=== PATIENT | male | born 1945 | race Caucasian/White ===

== ENCOUNTER 2016-12-01 16:23 | Observation (INO) | payer MEDICARE, BC ==
[2016-12-01] MEDS ORDERED: Sodium Chloride 0.9% 10 ML Syringe FLUSH PRN (17:02)
[2016-12-01] MEDS ORDERED: Sodium Chloride 0.9% 1,000 ML IV ONE (17:02)
--- NOTE | 2016-12-01 17:23 | EDM.PDOC ---
ED HPI GENERAL MEDICAL PROBLEM - General Chief Complaint: Neurological Problem Stated Complaint: LIGHT HEADED, DIZINESS,LOW BP Time Seen by Provider: 12/01/16 17:02 Source of Information: Reports: Patient History Limitations: Reports: No Limitations - History of Present Illness INITIAL COMMENTS - FREE TEXT/NARRATIVE: The patient is a 71-year-old male with a chief complaint of lightheadedness and low blood pressure. The patient states that he is been on his antihypertensives for a long time with no change. Today he was watching TV and felt very lightheaded. He felt like he might pass out. He did not pass out. He took his blood pressure at home and found it to be low. It was as low as in the 60s systolic. He did not have any chest pain. He does feel mildly short of breath. No headache. He continues to feel a little bit lightheaded but states it's better than before. No recent illness. No fever. No vomiting or diarrhea. No dysuria. No cough or difficulty breathing. States he took his medications today as prescribed. Denies recent change in this. - Related Data Allergies Allergy/AdvReac Type Severity Reaction Status Date / Time atorvastatin calcium Allergy Muscle Verified 12/01/16 16:50 [From Lipitor] Aches metformin Allergy Cannot Verified 12/01/16 16:50 Remember venom-honey bee Allergy Anaphylactic Verified 12/01/16 16:50 [bee venom (honey bee)] Shock Home Meds: Home Meds Aspirin 325 mg PO DAILY 02/03/15 [History] Calcium Carbonate/Vitamin D3 [Calcium 600 + D Tablet] 1 each PO DAILY 02/03/15 [ History] EPINEPHrine [Epipen] 0.3 mg IM ASDIRECTED PRN 02/03/15 [History] Fish Oil/[place]-3 Fatty Acids [Fish Oil 1,000 MG] 1 cap PO BID 02/03/15 [History] Furosemide [Lasix] 40 mg PO DAILY 02/03/15 [History] Glucosamn/Condroitn/C/Mn/[place] [[facility] Glucosamine Chondroitin Tb] 1 each PO DAILY 02/03/15 [History] Isosorbide Mononitrate [Imdur] 60 mg PO DAILY 02/03/15 [History] Lisinopril 5 mg PO DAILY 02/03/15 [History] Metoprolol Tartrate [Lopressor] 50 mg PO BID 02/03/15 [History] Multivitamin with Minerals [Multiple Vitamin] 0.5 tab PO BEDTIME 02/03/15 [ History] Nitroglycerin [Nitrostat] 0.4 mg SL ASDIRECTED PRN 02/03/15 [History] Potassium Chloride 20 meq PO DAILY 02/03/15 [History] Simvastatin [Zocor] 40 mg PO BEDTIME 02/03/15 [History] Triamcinolone. 1 applic TOP BID PRN 02/03/15 [History] Ubidecarenone [Coenzyme Q10] 200 mg PO DAILY 02/03/15 [History] Vitamin B Complex [B Complex] 0.5 each PO BEDTIME 02/03/15 [History] glipiZIDE [Glucotrol] 10 mg PO DAILY 02/03/15 [History] Insulin Glargine,Hum.Rec.Anlog [Toujeo Solostar] 80 unit SQ BEDTIME 12/01/16 [ History] Liraglutide [Victoza] 1.8 mg SUBCUT BEDTIME 12/01/16 [History] Magnesium Oxide [Magnesium] 400 mg PO DAILY 12/01/16 [History] Niacin 500 mg PO BEDTIME 12/01/16 [History] Social & Family History - Tobacco Use Smoking Status *Q: Former Smoker Years of Tobacco use: 45 Month Tobacco Last Used: 6 years ago - Recreational Drug Use Recreational Drug Use: No ED ROS GENERAL - Review of Systems Review Of Systems: See Below Constitutional: Reports: Weakness. Denies: Fever HEENT: Reports: No Symptoms Respiratory: Denies: Shortness of Breath, Cough Cardiovascular: Denies: Chest Pain Endocrine: Reports: No Symptoms GI/Abdominal: Denies: Abdominal Pain : Reports: No Symptoms. Denies: Dysuria Musculoskeletal: Reports: No Symptoms Skin: Reports: No Symptoms Neurological: Reports: Dizziness. Denies: Syncope Psychiatric: Reports: No Symptoms ED EXAM, NEURO - Physical Exam Exam: See Below Exam Limited By: No Limitations General Appearance: Alert, WD/WN, No Apparent Distress Eye Exam: Bilateral Eye: Normal Inspection, PERRL Ears: Normal External Exam Nose: Normal Inspection Throat/Mouth: Normal Inspection, Normal Voice, No Airway Compromise Head Exam: Atraumatic, Normocephalic Neck: Normal Inspection, Supple, Non-Tender, Full Range of Motion Respiratory/Chest: No Respiratory Distress, Lungs Clear, Normal Breath Sounds, Chest Non-Tender Cardiovascular: Normal Peripheral Pulses, Regular Rate, Rhythm, No Edema, Systolic Murmur GI/Abdominal: Soft, Non-Tender. No: Rebound Neurological: Alert, Normal Mood/Affect, CN II-XII Intact, No Motor/Sensory Deficits, Oriented x 3 Extremities: Normal Inspection, No Pedal Edema Psychiatric: Normal Affect, Normal Mood Skin Exam: Warm, Dry, Intact, Normal Color, No Rash Course - Vital Signs Last Recorded V/S: Last Vital Signs Temp 37.3 C 12/01/16 16:50 Pulse 79 12/01/16 16:50 Resp 28 H 12/01/16 16:50 BP 99/47 L 12/01/16 16:50 Pulse Ox 94 L 12/01/16 16:50 - Orders/Labs/Meds Orders: Active Orders 24 hr Category Date Time Status EKG 12 Lead [EKG Documentation Completion] [RC] STAT Care 12/01/16 17:02 Active Peripheral IV Care [RC] . DIRECTED Care 12/01/16 17:02 Active Chest 1V Frontal [CR] Stat Exams 12/01/16 17:02 Taken Sodium Chloride 0.9% [Saline Flush] Med 12/01/16 17:02 Active 10 ml FLUSH ASDIRECTED PRN Peripheral IV Insertion Adult [OM.PC] Routine Oth 12/01/16 17:02 Ordered Medication Orders Sodium Chloride (Saline Flush) 10 ml FLUSH ASDIRECTED PRN PRN Reason: Keep Vein Open Last Admin: 12/01/16 17:15 Dose: 10 ml Labs: Laboratory Tests 12/01/16 12/01/16 12/01/16 Range/Units 16:44 16:53 16:53 WBC 7.35 (4.23-9.07) K/mm3 RBC 4.47 L (4.63-6.08) M/mm3 Hgb 13.8 (13.7-17.5) gm/L Hct 42.0 (40.1-51.0) % MCV 94.0 H (79.0-92.2) fl MCH 30.9 (25.7-32.2) pg MCHC 32.9 (32.2-35.5) g/dl RDW Std Deviation 46.3 H (35.1-43.9) fL Plt Count 215 (163-337) K/mm3 MPV 9.6 (9.4-12.3) fl Neut % (Auto) 66.8 (34.0-67.9) % Lymph % (Auto) 16.6 L (21.8-53.1) % Terry % (Auto) 11.6 (5.3-12.2) % Eos % (Auto) 3.5 (0.8-7.0) Baso % (Auto) 1.2 (0.1-1.2) % Neut # (Auto) 4.91 (1.78-5.38) K/mm3 Lymph # (Auto) 1.22 L (1.32-3.57) K/mm3 Terry # (Auto) 0.85 H (0.30-0.82) K/mm3 Eos # (Auto) 0.26 (0.04-0.54) K/mm3 Baso # (Auto) 0.09 H (0.01-0.08) K/mm3 Sodium 140 (136-145) mEq/L Potassium 4.1 (3.5-5.1) mEq/L Chloride 103 (98-107) mEq/L Carbon Dioxide 27 (21-32) mEq/L Anion Gap 14.1 (5-15) BUN 25 H (7-18) mg/dL Creatinine 1.6 H (0.7-1.3) mg/dL Est Cr Clr Drug Dosing 44.99 mL/min Estimated GFR (MDRD) 43 (>60) mL/min BUN/Creatinine Ratio 15.6 (14-18) Glucose 180 H (80-115) mg/dL POC Glucose 151 H (80-115) mg/dL Calcium 8.9 (8.5-10.1) mg/dL Total Bilirubin 0.4 (0.2-1.0) mg/dL AST 20 (15-37) U/L ALT 33 (16-63) U/L Alkaline Phosphatase 45 L (46-116) U/L Troponin I < 0.017 (0.00-0.056) ng/mL Total Protein 7.0 (6.4-8.2) g/dl Albumin 3.8 (3.4-5.0) g/dl Globulin 3.2 gm/dL Albumin/Globulin Ratio 1.2 (1-2) Meds: Medications Generic Name Dose Route Start Last Admin Trade Name Freq PRN Reason Stop Dose Admin Sodium Chloride 10 ml 12/01/16 17:02 12/01/16 17:15 Saline Flush FLUSH 10 ml ASDIRECTED PRN Administration Keep Vein Open Discontinued Medications Generic Name Dose Route Start Last Admin Trade Name Freq PRN Reason Stop Dose Admin Sodium Chloride 1,000 mls @ 1,000 mls/hr 12/01/16 17:02 12/01/16 17:14 Normal Saline IV 12/01/16 18:01 1,000 mls/hr ONETIME ONE Administration - Re-Assessments/Exams Free Text/Narrative Re-Assessment/Exam: 12/01/16 18:12 EKG shows incomplete right bundle branch block. No ST abnormality. No evidence of acute ischemia. MT interval mildly prolonged at 285. Chest x-ray shows normal mediastinum, mild cardiomegaly, slight opacity at the bases consistent with atelectasis versus less likely underlying infection. The patient is not complaining of a cough or fever. He was given a liter of normal saline and observed. His blood pressure has improved. He did have a run of bigeminy on the monitor which self resolved. 12/01/16 18:[address] Mar who agrees to admit. BP s/p 1L NS is 99/58. Departure - Departure Time of Disposition: 18:51 Disposition: Admitted As Inpatient 68 Clinical Impression: Pre-syncope Hypotension Qualifiers: Hypotension type: unspecified hypotension type Qualified Code(s): I95.9 - Hypotension, unspecified - Discharge Information Forms: ED Department Discharge - My Orders Last 24 Hours: My Active Orders 12/01/16 17:02 EKG 12 Lead [EKG Documentation Completion] [RC] STAT Peripheral IV Care [RC] . DIRECTED Chest 1V Frontal [CR] Stat Sodium Chloride 0.9% [Saline Flush] 10 ml FLUSH ASDIRECTED PRN Peripheral IV Insertion Adult [OM.PC] Routine - Assessment/Plan Last 24 Hours: My Active Orders 12/01/16 17:02 EKG 12 Lead [EKG Documentation Completion] [RC] STAT Peripheral IV Care [RC] . DIRECTED Chest 1V Frontal [CR] Stat Sodium Chloride 0.9% [Saline Flush] 10 ml FLUSH ASDIRECTED PRN Peripheral IV Insertion Adult [OM.PC] Routine
[2016-12-01] MEDS ORDERED: Metoprolol Tartrate 5 MG/5 ML SDV IVPUSH PRN (19:54)
[2016-12-01] MEDS ORDERED: hydrALAZINE 20 MG/ML SDV IVPUSH PRN (19:54)
[2016-12-01] MEDS ORDERED: Bisacodyl 5 MG Tab PO PRN (19:55)
[2016-12-01] MEDS ORDERED: Ondansetron 4 MG/2 ML SDV IV PRN (19:55)
[2016-12-01] MEDS ORDERED: LORazepam 2 MG/ML MDV IV PRN (19:55)
[2016-12-01] MEDS ORDERED: Temazepam 15 MG Cap PO PRN (19:55)
[2016-12-01] MEDS ORDERED: Promethazine 12.5 MG in Sodium Chloride 0.9% 50 ML IV PRN (19:55)
[2016-12-01] MEDS ORDERED: Docusate Sodium 100 MG Cap PO PRN (19:55)
[2016-12-01] MEDS ORDERED: Albuterol/Ipratropium 3.0-0.5 MG/3 ML Neb Soln NEB PRN (19:55)
[2016-12-01] MEDS ORDERED: Acetaminophen/HYDROcodone 325-5 MG Tab PO PRN (19:55)
[2016-12-01] MEDS ORDERED: Polyethylene Glycol 3350 Powder 17 GM Packet PO PRN (19:55)
[2016-12-01] MEDS ORDERED: Acetaminophen 325 MG Tab PO PRN (19:55)
[2016-12-01] MEDS ORDERED: HYDROmorphone 1 MG/ML Syringe IVPUSH PRN (19:55)
[2016-12-01] MEDS ORDERED: [UNRECOGNIZED DRUG - MIXTURE] TOP PRN (19:58)
[2016-12-01] MEDS ORDERED: Nitroglycerin 0.4 MG Tab.SL SL PRN (19:58)
[2016-12-01] MEDS ORDERED: EPINEPHrine 0.3 MG/0.3 ML Pen Autoinjector IM PRN (19:58)
[2016-12-01] MEDS ORDERED: 50% Dextrose in Water 50 ML Syringe IVPUSH PRN (20:00)
--- NOTE | 2016-12-01 20:16 | PCM.HP ---
H&P History of Present Illness - General Date of Service: 12/01/16 Admit Problem/Dx: Hypotension and Pre-Syncope Source of Information: Patient, Provider, RN Notes Reviewed History Limitations: Reports: No Limitations - History of Present Illness Initial Comments - Free Text/Narative: This is a 71-year-old elderly white male with past medical history of hypertension, hyperlipidemia, coronary artery disease, type 2 diabetes, obstructive sleep apnea, DJD, and obesity with BMI of 44.5 who presented to the emergency department with complains of low blood pressure and a one time pre- syncopal episode. The incident happened today while he was at home, watching TV and got lightheaded. Patient felt like he might pass out. Patient took his blood pressure and he a got a reading of systolic pressure in the 60s. He denies any other symptoms except for mild shortness of breath. At that time, his finger stick blood sugar was noted at 151. Patient carries a history of hypertension on the following medications: lisinopril 5 mg by mouth daily, metoprolol tartrate 5 mg by mouth twice a day, Lasix 40 mg by mouth daily and Imdur 60 mg by mouth daily. Patient denies any changes on his home maintenance medication. He denies doing anything unusual or out of the ordinary. His initial workup in the emergency department shows an unremarkable CBC. His chemistry is remarkable for BUN of 25, creatinine of 1.6, glucose of 180, and alkaline phosphatase of 45. His chest x-ray shows no acute abnormal findings. Patient is being admitted for further medical management of profound hypotension. He received initial treatment with 1L normal saline in the emergency department before he was transferred to the floor for further management. His most recent documented BP was noted at 99/58 mmHg. His code status is full. - Related Data Allergies/Adverse Reactions: Allergies Allergy/AdvReac Type Severity Reaction Status Date / Time metformin Allergy Cannot Verified 12/01/16 19:56 Remember venom-honey bee Allergy Anaphylactic Verified 12/01/16 19:56 [bee venom (honey bee)] Shock atorvastatin calcium AdvReac Muscle Verified 12/02/16 07:11 [From Lipitor] Aches Home Medications: Home Meds Aspirin 325 mg PO DAILY 02/03/15 [History] Calcium Carbonate/Vitamin D3 [Calcium 600 + D Tablet] 1 each PO DAILY 02/03/15 [ History] EPINEPHrine [Epipen] 0.3 mg IM ASDIRECTED PRN 02/03/15 [History] Fish Oil/[place]-3 Fatty Acids [Fish Oil 1,000 MG] 1 cap PO BID 02/03/15 [History] Furosemide [Lasix] 40 mg PO DAILY 02/03/15 [History] Glucosamn/[place]/C/Mn/[place] [[facility] Glucosamine Chondroitin Tb] 1 each PO DAILY 02/03/15 [History] Isosorbide Mononitrate [Imdur] 60 mg PO DAILY 02/03/15 [History] Lisinopril 5 mg PO DAILY 02/03/15 [History] Metoprolol Tartrate [Lopressor] 50 mg PO BID 02/03/15 [History] Multivitamin with Minerals [Multiple Vitamin] 0.5 tab PO BEDTIME 02/03/15 [ History] Nitroglycerin [Nitrostat] 0.4 mg SL ASDIRECTED PRN 02/03/15 [History] Potassium Chloride 20 meq PO DAILY 02/03/15 [History] Simvastatin [Zocor] 40 mg PO BEDTIME 02/03/15 [History] Triamcinolone. 1 applic TOP BID PRN 02/03/15 [History] Ubidecarenone [Coenzyme Q10] 200 mg PO DAILY 02/03/15 [History] Vitamin B Complex [B Complex] 0.5 each PO BEDTIME 02/03/15 [History] glipiZIDE [Glucotrol] 10 mg PO DAILY 02/03/15 [History] Insulin Glargine,Hum.Rec.Anlog [Toujeo Solostar] 80 unit SQ BEDTIME 12/01/16 [ History] Liraglutide [Victoza] 1.8 mg SUBCUT BEDTIME 12/01/16 [History] Magnesium Oxide [Magnesium] 400 mg PO DAILY 12/01/16 [History] Niacin 500 mg PO BEDTIME 12/01/16 [History] Past Medical History HEENT History: Reports: Other (See Below) Other HEENT History: wears glasses Cardiovascular History: Reports: High Cholesterol, Hypertension, [place] Musculoskeletal History: Reports: Arthritis Endocrine/Metabolic History: Reports: Diabetes, Type II - Past Surgical History Cardiovascular Surgical History: Reports: Coronary Artery Bypass GI Surgical History: Reports: Hernia Repair/Other Social & Family History - Tobacco Use Smoking Status *Q: Former Smoker Years of Tobacco use: 45 Month Tobacco Last Used: 6 years ago - Caffeine Use Caffeine Use: Reports: None - Recreational Drug Use Recreational Drug Use: No H&P Review of Systems - Review of Systems: Review Of Systems: ROS reveals no pertinent complaints other than HPI. Exam - Exam Exam: See Below - Vital Signs Vital Signs: Last Vital Signs Temp 37.3 C 12/01/16 16:50 Pulse 79 12/01/16 16:50 Resp 28 H 12/01/16 16:50 BP 99/47 L 12/01/16 16:50 Pulse Ox 94 L 12/01/16 16:50 Weight: 140.614 kg - Exam General: Alert, Oriented, Cooperative, Mild Distress, Other (Obese) HEENT: Conjunctiva Clear, EACs Clear, EOMI, Hearing Intact, Mucosa Moist & [place] , Nares Patent, Normal Nasal Septum, Pupils Equal, Abnormal Pupils Neck: Supple, Trachea Midline, Full Range of Motion, Other (short and thick) Lungs: Clear to Auscultation, Normal Respiratory Effort Cardiovascular: Regular Rate, Regular Rhythm Abdomen: Normal Bowel Sounds, Other (Obese). No: Tenderness (Male) Exam: Deferred Rectal (Males) Exam: Deferred Back Exam: Normal Inspection, Decreased Range of Motion Extremities: Normal Inspection, Normal Pulses Peripheral Pulses: 2+: Posterior Tibial (L), Posterior Tibial (R), Dorsalis Pedis (L), Dorsalis Pedis (R) Skin: Warm, Dry, Intact, Rash (all over his body primarily on hi back) Neuro Extensive - Mental Status: Oriented x3, Normal Cognition, Memory Intact Neuro Extensive - Motor, Sensory, Reflexes: CN II-XII Intact, Normal Gait Psychiatric: Alert, Normal Affect, Normal Mood - Patient Data Result Diagrams: 12/02/16 05:23 12/02/16 05:23 EKG INTERPRETATION EKG Date: 12/01/16 Rhythm: Other (SR) ST-T: Normal MA/PQ Interval: slightly prolonged EKG Interpretation Comments: Incomplete RB3 *Q Meaningful Use (ADM) - VTE *Q VTE Criteria *Q: - Stroke *Q Stroke Criteria *Q: - AMI *Q AMI Criteria *Q: Problem List Initiated/Reviewed/Updated: Yes Orders Last 24hrs: Active Orders 24 hr Category Date Time Status Antiembolic Devices [RC] PER UNIT ROUTINE Care 12/01/16 19:56 Ordered Blood Glucose Check, Bedside [RC] QIDACANDBED Care 12/01/16 20:00 Ordered Cardiac Monitoring [RC] CONTINUOUS Care 12/01/16 19:55 Ordered Height and Weight [RC] DAILY Care 12/01/16 19:55 Ordered Intake and Output [RC] QSHIFT Care 12/01/16 19:55 Ordered Oxygen Therapy [RC] PRN Care 12/01/16 19:55 Ordered RT Aerosol Therapy [RC] ASDIRECTED Care 12/01/16 19:56 Ordered Up With Assistance [RC] ASDIRECTED Care 12/01/16 19:55 Ordered Up ad Naomi [RC] ASDIRECTED Care 12/01/16 19:55 Ordered VTE/DVT Education [RC] PER UNIT ROUTINE Care 12/01/16 19:55 Ordered Vital Signs [RC] Q4H Care 12/01/16 19:55 Ordered Consult to Case Management [CONS] Routine Cons 12/01/16 19:57 Ordered Consult to Master Glazier [CONS] Routine Cons 12/01/16 19:57 Ordered OT Evaluation and Treatment [CONS] Routine Cons 12/01/16 19:57 Ordered PT Evaluation and Treatment [CONS] Routine Cons 12/01/16 19:57 Ordered ADA Diabetic [[place] [employer] Diet] [DIET Diet 12/01/16 Breakfast Ordered ] Echo Comp wo Cont [US] Urgent Exams 12/01/16 20:00 Ordered A1C [GLYCOSYLATED HEMOGLOBIN,HGBA1C] [CHEM] AM Lab 12/02/16 05:11 Ordered BASIC METABOLIC PANEL,BMP [CHEM] AM Lab 12/02/16 05:11 Ordered BASIC METABOLIC PANEL,BMP [CHEM] AM Lab 12/03/16 05:11 Ordered BASIC METABOLIC PANEL,BMP [CHEM] AM Lab 12/04/16 05:11 Ordered BASIC METABOLIC PANEL,BMP [CHEM] AM Lab 12/05/16 05:11 Ordered BASIC METABOLIC PANEL,BMP [CHEM] AM Lab 12/06/16 05:11 Ordered CBC WITH AUTO DIFF [HEME] AM Lab 12/02/16 05:11 Ordered CBC WITH AUTO DIFF [HEME] AM Lab 12/03/16 05:11 Ordered CBC WITH AUTO DIFF [HEME] AM Lab 12/04/16 05:11 Ordered CBC WITH AUTO DIFF [HEME] AM Lab 12/05/16 05:11 Ordered CBC WITH AUTO DIFF [HEME] AM Lab 12/06/16 05:11 Ordered MAGNESIUM [CHEM] AM Lab 12/02/16 05:11 Ordered MAGNESIUM [CHEM] AM Lab 12/03/16 05:11 Ordered MAGNESIUM [CHEM] AM Lab 12/04/16 05:11 Ordered MAGNESIUM [CHEM] AM Lab 12/05/16 05:11 Ordered MAGNESIUM [CHEM] AM Lab 12/06/16 05:11 Ordered Acetaminophen [Tylenol] Med 12/01/16 19:55 Ordered 650 mg PO Q4H PRN Acetaminophen/HYDROcodone [[place] 325-5 MG] Med 12/01/16 19:55 Ordered 1 tab PO Q4H PRN Albuterol/Ipratropium [DuoNeb 3.0-0.5 MG/3 ML] Med 12/01/16 19:55 Ordered 3 ml NEB Q4H PRN Aspirin Med 12/02/16 09:00 Ordered 325 mg PO DAILY Bisacodyl [Dulcolax] Med 12/01/16 19:55 Ordered 5 mg PO DAILY PRN Calcium Carbonate/Vitamin D3 [Calcium 600 + D Tablet] Med 12/02/16 09:00 Ordered 1 each PO DAILY Dextrose 50% in Water Med 12/01/16 20:00 Ordered 50 ml IVPUSH ASDIRECTED PRN Docusate Sodium [Colace] Med 12/01/16 19:55 Ordered 100 mg PO BID PRN Docusate Sodium/Sennosides [Senna Plus] Med 12/01/16 19:55 Ordered 1 tab PO BID PRN EPINEPHrine [Epipen] Med 12/01/16 19:58 Ordered 0.3 mg IM ASDIRECTED PRN Fish Oil/[place]-3 Fatty Acids [Fish Oil] Med 12/01/16 21:00 Ordered 1 cap PO BID Glucosamn/Condroitn/C/Mn/[place] [[facility] Glucosamine Med 12/02/16 09:00 Ordered Chondroitin Tb] 1 each PO DAILY HYDROmorphone [Dilaudid] Med 12/01/16 19:55 Ordered 0.25 mg IVPUSH Q2H PRN Insulin Aspart [NovoLOG] Med 12/01/16 22:00 Ordered See Protocol SUBCUT QIDACANDBED Insulin Glargine,Hum.Rec.Anlog [[place]] Med 12/01/16 21:00 Ordered 80 unit SQ BEDTIME LORazepam [Ativan] Med 12/01/16 19:55 Ordered 0.5 mg IV Q6H PRN Liraglutide Med 12/01/16 21:00 Ordered 1.8 mg SUBCUT BEDTIME Magnesium Oxide [Magnesium] Med 12/02/16 09:00 Ordered 400 mg PO DAILY Magnesium Rep Pharmacy to Dose [Pharmacy to Dose - Med 12/01/16 20:00 Ordered Magnesium Replacement] 1 dose .XX ASDIRECTED Metoprolol Tartrate [Lopressor] Med 12/01/16 19:54 Ordered 5 mg IVPUSH Q4H PRN Multivitamin with Minerals [Multiple Vitamin] Med 12/01/16 21:00 Ordered 0.5 tab PO BEDTIME Niacin [Niacin] Med 12/01/16 21:00 Ordered 500 mg PO BEDTIME Nitroglycerin [Nitrostat] Med 12/01/16 19:58 Ordered 0.4 mg SL ASDIRECTED PRN Ondansetron [Zofran] Med 12/01/16 19:55 Ordered 4 mg IV Q6H PRN Polyethylene Glycol 3350 [MiraLAX] Med 12/01/16 19:55 Ordered 17 gm PO DAILY PRN Potassium Rep Pharmacy to Dose [Pharmacy to Dose - Med 12/01/16 20:00 Ordered Potassium Replacement] 1 dose .XX ASDIRECTED Promethazine [Phenergan] 12.5 mg Med 12/01/16 19:55 Ordered Sodium Chloride 0.9% [Normal Saline] 50 ml IV Q6H Simvastatin [Zocor] Med 12/01/16 21:00 Ordered 40 mg PO BEDTIME Temazepam [Restoril] Med 12/01/16 19:55 Ordered 15 mg PO BEDTIME PRN Triamcinolone. Med 12/01/16 19:58 Ordered 1 applic TOP BID PRN Ubidecarenone Med 12/02/16 09:00 Ordered 200 mg PO DAILY Vitamin B Complex Med 12/01/16 21:00 Ordered 0.5 each PO BEDTIME glipiZIDE [Glucotrol] Med 12/02/16 09:00 Ordered 10 mg PO DAILY hydrALAZINE [Apresoline] Med 12/01/16 19:54 Ordered 20 mg IVPUSH Q4H PRN Sequential Compression Device [OM.PC] Per Unit Routine Oth 12/01/16 19:55 Ordered Resuscitation Status Routine Resus Stat 12/01/16 19:55 Ordered Medication Orders Acetaminophen (Tylenol) 650 mg PO Q4H PRN PRN Reason: Pain (Mild 1-3)/fever Hydrocodone Bitart/Acetaminophen ([place] 325-5 Mg) 1 tab PO Q4H PRN PRN Reason: Pain (moderate 4-6) Albuterol/Ipratropium (Duoneb 3.0-0.5 Mg/3 Ml) 3 ml NEB Q4H PRN PRN Reason: Shortness Of Breath/wheezing Bisacodyl (Dulcolax) 5 mg PO DAILY PRN PRN Reason: Constipation Dextrose/Water (Dextrose 50% In Water) 50 ml IVPUSH ASDIRECTED PRN PRN Reason: Hypoglycemia Docusate Sodium (Colace) 100 mg PO BID PRN PRN Reason: Constipation Epinephrine HCl (Epipen) 0.3 mg IM ASDIRECTED PRN PRN Reason: beesting Fish Oil (Fish Oil) gm PO BID [facility] Glipizide (Glucotrol) 10 mg PO DAILY [facility] Hydralazine HCl (Apresoline) 20 mg IVPUSH Q4H PRN PRN Reason: Hypertension Hydromorphone HCl (Dilaudid) 0.25 mg IVPUSH Q2H PRN PRN Reason: Pain (severe 7-10) Promethazine HCl 12.5 mg/ (Sodium Chloride) 50.5 mls @ 100 mls/hr IV Q6H PRN PRN Reason: Nausea/Vomiting Insulin Aspart (Novolog) 0 unit SUBCUT QIDACANDBED JUAN PRN Reason: Protocol Lorazepam (Ativan) 0.5 mg IV Q6H PRN PRN Reason: Anxiety Magnesium Sulfate (Pharmacy To Dose - Magnesium Replacement) 1 dose .XX ASDIRECTED [facility] Metoprolol Tartrate (Lopressor) 5 mg IVPUSH Q4H PRN PRN Reason: Tachycardia Nitroglycerin (Nitrostat) 0.4 mg SL ASDIRECTED PRN PRN Reason: Chest Pain Non-Formulary Medication (Aspirin) 325 mg PO DAILY [facility] Non-Formulary Medication (Calcium Carbonate/Vitamin D3 [Calcium 600 + D Tablet] ) 1 each PO DAILY [facility] Non-Formulary Medication (Glucosamn/Condroitn/C/Mn/[place] [[facility] Glucosamine Chondroitin Tb]) 1 each PO DAILY [facility] Non-Formulary Medication (Insulin Glargine,Hum.Rec.Anlog [[place] Solostar]) 80 unit SQ BEDTIME [facility] Non-Formulary Medication (Liraglutide) 1.8 mg SUBCUT BEDTIME [facility] Non-Formulary Medication (Magnesium Oxide [Magnesium]) 400 mg PO DAILY [facility] Non-Formulary Medication (Multivitamin With Minerals [Multiple Vitamin]) 0.5 tab PO BEDTIME [facility] Non-Formulary Medication (Niacin [Niacin]) 500 mg PO BEDTIME [facility] Non-Formulary Medication (Triamcinolone.) 1 applic TOP BID PRN PRN Reason: Rash Non-Formulary Medication (Ubidecarenone) 200 mg PO DAILY [facility] Non-Formulary Medication (Vitamin B Complex) 0.5 each PO BEDTIME [facility] Ondansetron HCl (Zofran) 4 mg IV Q6H PRN PRN Reason: Nausea/Vomiting Polyethylene Glycol (Miralax) 17 gm PO DAILY PRN PRN Reason: Constipation Potassium Chloride (Pharmacy To Dose - Potassium Replacement) 1 dose .XX ASDIRECTED [facility] Senna/Docusate Sodium (Senna Plus) 1 tab PO BID PRN PRN Reason: Constipation Simvastatin (Zocor) 40 mg PO BEDTIME [facility] Sodium Chloride (Saline Flush) 10 ml FLUSH ASDIRECTED PRN PRN Reason: Keep Vein Open Last Admin: 12/01/16 17:15 Dose: 10 ml Temazepam (Restoril) 15 mg PO BEDTIME PRN PRN Reason: Sleep Assessment/Plan Comment:: Assessment/Plan: Acute: Pre-Syncope - One time episode - Likely 2/2 Hypotension - Will monitor - 2D echo in AM to r/o valvular dysfunction - Ad naomi with Assistance - Telemetry for abnormal rhythm Profound Hypotension - Risk factors: Multiple BP Meds - Hold for now - Already received 1L NS in ED - Continue maintenance fluid - Vitals check per unit protocol Chronic: DM2 HLD CAD LISA on CPAP Psoriasis Obesity with BMI 44.5 DJD Plan: Admit to the floor w/ Tele Routine AM Labs CPAP at night Dietary consult for weight management 2D Echo in am PT/OT consult SW/CM for d/c planning Additional orders as above Code status: 1
[2016-12-01] MEDS ORDERED: VITAMIN B COMPLEX PO SCH (21:00)
[2016-12-01] MEDS ORDERED: Multivitamins with Minerals/Folic Acid/Lutein/Zeaxanth Tab PO SCH (21:00)
[2016-12-01] MEDS ORDERED: VICTOZA SUBCUT SCH (21:00)
[2016-12-01] MEDS ORDERED: Niacin 500 MG Tab.ER PO SCH (21:00)
[2016-12-01] MEDS ORDERED: Simvastatin 40 MG Tab PO SCH (21:00)
[2016-12-01] MEDS: Fish Oil/Omega-3 Fatty Acids 1 Gm Cap PO SCH (21:33)
[2016-12-01] MEDS: Insulin Detemir 100 Units/ML 3 ML Pen SUBCUT SCH (21:34)
[2016-12-01] MEDS: Insulin Aspart 100 Units/ML 3 ML Pen SUBCUT SCH (21:36)
[2016-12-02] MEDS: Insulin Aspart 100 Units/ML 3 ML Pen SUBCUT SCH ×2 (06:58→11:05)
[2016-12-02] MEDS ORDERED: HYDROmorphone 0.5 MG/0.5 ML Syringe IVPUSH PRN (07:08)
--- NOTE | 2016-12-02 07:11 | CR ---
Chest: Portable view of the chest was obtained. Comparison: Previous chest x-ray of 08/25/13. Heart size and mediastinum are within normal limits for portable technique. Lungs are clear with no acute infiltrates. Previous sternotomy is noted. Bony structures are grossly intact. Impression: 1. Nothing acute is identified on portable chest x-ray. Diagnostic code #1
[2016-12-02] MEDS ORDERED: Magnesium Oxide 400 MG Tab PO SCH (09:00)
[2016-12-02] MEDS ORDERED: [UNRECOGNIZED DRUG - OTHER] PO SCH (09:00)
[2016-12-02] MEDS ORDERED: CO Q10 PO SCH (09:00)
[2016-12-02] MEDS ORDERED: Calcium Carbonate/Vitamin D3 1500 MG-200 Units Tab PO SCH (09:00)
[2016-12-02] MEDS ORDERED: Aspirin 325 MG Tab.EC PO SCH (09:00)
[2016-12-02] MEDS: Fish Oil/Omega-3 Fatty Acids 1 Gm Cap PO SCH (09:51)
[2016-12-02] MEDS: Insulin Detemir 100 Units/ML 3 ML Pen SUBCUT SCH (09:54)
--- NOTE | 2016-12-02 11:09 | PCM.DCSUM1 ---
Discharge Summary - Hospital Course Brief History: This is a 71-year-old elderly white male with past medical history of hypertension, hyperlipidemia, coronary artery disease, type 2 diabetes, obstructive sleep apnea, DJD, and obesity with BMI of 44.5 who presented to the emergency department with complains of low blood pressure and a one time pre-syncopal episode. He was admitted overnight for observation. - Discharge Data Discharge Date: 12/02/16 Discharge Disposition: Home, Self-Care 01 Condition: Good - Patient Summary/Data Operative Procedure(s) Performed: None Complications: None Consults: Consultations 12/01/16 19:57 Consult to Case Management [CONS] Routine Consult to Burlap Worker [CONS] Routine OT Evaluation and Treatment [CONS] Routine PT Evaluation and Treatment [CONS] Routine 12/01/16 20:23 Consult to Dietary [Consult to Lacquer Polisher] [CONS] Routine Hospital Course: Patient was primarily admitted for symptomatic hypotension which we felt induced by multiple blood pressure medications. He also had a one time presyncopal episode at the same time but did not have recurrent episode while here in the hospital. Patient received initial treatment in ED. By the time he got to the floor, he was pretty much back to his normal baseline. While in ED, he received volume resuscitative measures and all his blood pressure meds were held overnight. His most recent blood pressure on the day of discharge was noted at 135/65 mmHg. No abnormal telemetry was ever recorded during his short stay except for occasional PVCs, which appears to be normal to him. A 2-D echo was ordered to asses his valvular function, unfortunately the report is still pending. Patient is very eager to leave and therefore we will plan on forwarding the result to his primary care as soon as we receive it from Tim. His hospital course was uncomplicated. The rest of his chronic medical illness remained stable during this admission. Patient will be leaving today. He was advised to check his blood pressure before taking all his medications (blood pressure parameters provided). He is to check and log his vitals at least twice a day and 3-4 times a week. He is to show the results to his primary care doctor on his follow-up appointment in about 1-2 weeks. Lastly, patient was further advised to continue with lifestyle modifications: regular exercise, eat proper diet and weight loss. He is to come back or seek immediate care should his symptoms persist or get worse. The patient expressed understanding and in agreement with the plans as discussed above. All questions were answered. Dr. Huston, primary care provider, was contacted and updated about the discharge care plans on the day of patient's discharge. - Patient Instructions Diet: Heart Healthy Diet, Usual Diet as Tolerated, Diabetic Diet, Weight Loss Diet Activity: As Tolerated Driving: May Drive Today Showering/Bathing: May Shower Notify Provider of: Increased Pain, Swelling and Redness, Nausea and/or Vomiting Other/Special Instructions: - Please resume all home maintenance medications as directed. - Check your BP before taking all your blood pressure medications. - Check yout vitals at least 2 times a day and 3-4 times a wee. Log and show it to your PCP on your follow up appointment. - Follow up with your family doctor as scheduled - Discharge Plan Home Medications: Home Meds Aspirin 325 mg PO DAILY 02/03/15 [History] Calcium Carbonate/Vitamin D3 [Calcium 600 + D Tablet] 1 each PO DAILY 02/03/15 [ History] EPINEPHrine [Epipen 2-Ankit] 0.3 mg IM ASDIRECTED PRN 02/03/15 [History] Fish Oil/[place]-3 Fatty Acids [Fish Oil 1,000 MG] 1 cap PO BID 02/03/15 [History] Furosemide [Lasix] 40 mg PO DAILY 02/03/15 [History] Glucosamn/Condroitn/C/Mn/[place] [[facility]vs Glucosamine Chondroitin Tb] 1 each PO DAILY 02/03/15 [History] Isosorbide Mononitrate [Imdur] 60 mg PO DAILY 02/03/15 [History] Lisinopril 5 mg PO DAILY 02/03/15 [History] Metoprolol Tartrate [Lopressor] 50 mg PO BID 02/03/15 [History] Multivitamin with Minerals [Multiple Vitamin] 0.5 tab PO BEDTIME 02/03/15 [ History] Nitroglycerin [Nitrostat] 0.4 mg SL ASDIRECTED PRN 02/03/15 [History] Potassium Chloride 20 meq PO DAILY 02/03/15 [History] Simvastatin [Zocor] 40 mg PO BEDTIME 02/03/15 [History] Triamcinolone. 1 applic TOP BID PRN 02/03/15 [History] Ubidecarenone [Coenzyme Q10] 200 mg PO DAILY 02/03/15 [History] Vitamin B Complex [B Complex] 0.5 each PO BEDTIME 02/03/15 [History] glipiZIDE [Glucotrol] 10 mg PO DAILY 02/03/15 [History] Insulin Glargine,Hum.Rec.Anlog [Toutravo Solostar] 80 unit SQ BEDTIME 12/01/16 [ History] Liraglutide [Victoza] 1.8 mg SUBCUT BEDTIME 12/01/16 [History] Magnesium Oxide [Magnesium] 400 mg PO DAILY 12/01/16 [History] Niacin 500 mg PO BEDTIME 12/01/16 [History] Patient Handouts: Hypotension, [id number] Referrals: Tucker Dsouza MD [Primary Care Provider] - ([place] [facility] will call you with a time for a follow-up appointment in the next 1-2 weeks.) - Discharge Summary/Plan Comment DC Time >30 min.: Yes (45 mins) Discharge Summary/Plan Comment: Discharge to Home - General Info Date of Service: 12/02/16 Admission Dx/Problem (Free Text: Hypotension and Pre-Syncope Subjective Update: Follow up Functional Status: Reports: pain controlled, tolerating diet, ambulating, urinating. Denies: new symptoms - Review of Systems General: Denies: Fever, Weakness, Fatigue, Malaise, Chills HEENT: Reports: no symptoms Pulmonary: Denies: shortness of breath Cardiovascular: Denies: Chest Pain, Palpitations, Dyspnea on Exertion, Orthopnea , Edema, Lightheadedness Gastrointestinal: Denies: Abdominal pain, Nausea, Vomiting Genitourinary: Reports: no symptoms Musculoskeletal: Reports: no symptoms Skin: Reports: rash (baseline psoriasis) Neurological: Denies: Confusion, Difficulty Walking, Weakness, Gait Disturbance Psychiatric: Denies: depression, anxiety, agitation, hallucinations Systems Review Comment: No overnight or acute issues. His vitals have been stable. No new complaints. - Patient Data Vitals - Most Recent: Last Vital Signs Temp 36.2 C 12/02/16 07:50 Pulse 76 12/02/16 09:56 Resp 18 12/02/16 07:50 BP 118/57 L 12/02/16 09:56 Pulse Ox 96 12/02/16 09:56 Weight - Most Recent: 140.614 kg I&O - Last 24 hours: Intake & Output 12/01/16 12/02/16 12/02/16 22:59 06:59 14:59 Intake Total 600 180 Output Total 800 Balance -200 180 Lab Results - Last 24 hrs: Laboratory Results - last 24 hr 12/01/16 12/02/16 12/02/16 Range/Units 21:02 05:23 05:23 WBC 6.46 (4.23-9.07) K/mm3 RBC 4.79 (4.63-6.08) M/mm3 Hgb 14.5 (13.7-17.5) gm/L Hct 45.2 (40.1-51.0) % MCV 94.4 H (79.0-92.2) fl MCH 30.3 (25.7-32.2) pg MCHC 32.1 L (32.2-35.5) g/dl RDW Std Deviation 46.9 H (35.1-43.9) fL Plt Count 202 (163-337) K/mm3 MPV 9.9 (9.4-12.3) fl Neut % (Auto) 59.9 (34.0-67.9) % Lymph % (Auto) 21.7 L (21.8-53.1) % Levy % (Auto) 13.6 H (5.3-12.2) % Eos % (Auto) 3.4 (0.8-7.0) Baso % (Auto) 1.2 (0.1-1.2) % Neut # (Auto) 3.87 (1.78-5.38) K/mm3 Lymph # (Auto) 1.40 (1.32-3.57) K/mm3 Levy # (Auto) 0.88 H (0.30-0.82) K/mm3 Eos # (Auto) 0.22 (0.04-0.54) K/mm3 Baso # (Auto) 0.08 (0.01-0.08) K/mm3 Sodium 142 (136-145) mEq/L Potassium 4.1 (3.5-5.1) mEq/L Chloride 108 H (98-107) mEq/L Carbon Dioxide 26 (21-32) mEq/L Anion Gap 12.1 (5-15) BUN 19 H (7-18) mg/dL Creatinine 1.4 H (0.7-1.3) mg/dL Est Cr Clr Drug Dosing 51.42 mL/min Estimated GFR (MDRD) 50 (>60) mL/min BUN/Creatinine Ratio 13.6 L (14-18) Glucose 109 (80-115) mg/dL POC Glucose 180 H (80-115) mg/dL Hemoglobin A1c (4.50-6.20) % Calcium 8.4 L (8.5-10.1) mg/dL Magnesium 2.2 (1.8-2.4) mg/dl 12/02/16 12/02/16 Range/Units 05:23 06:45 WBC (4.23-9.07) K/mm3 RBC (4.63-6.08) M/mm3 Hgb (13.7-17.5) gm/L Hct (40.1-51.0) % MCV (79.0-92.2) fl MCH (25.7-32.2) pg MCHC (32.2-35.5) g/dl RDW Std Deviation (35.1-43.9) fL Plt Count (163-337) K/mm3 MPV (9.4-12.3) fl Neut % (Auto) (34.0-67.9) % Lymph % (Auto) (21.8-53.1) % Levy % (Auto) (5.3-12.2) % Eos % (Auto) (0.8-7.0) Baso % (Auto) (0.1-1.2) % Neut # (Auto) (1.78-5.38) K/mm3 Lymph # (Auto) (1.32-3.57) K/mm3 Levy # (Auto) (0.30-0.82) K/mm3 Eos # (Auto) (0.04-0.54) K/mm3 Baso # (Auto) (0.01-0.08) K/mm3 Sodium (136-145) mEq/L Potassium (3.5-5.1) mEq/L Chloride (98-107) mEq/L Carbon Dioxide (21-32) mEq/L Anion Gap (5-15) BUN (7-18) mg/dL Creatinine (0.7-1.3) mg/dL Est Cr Clr Drug Dosing mL/min Estimated GFR (MDRD) (>60) mL/min BUN/Creatinine Ratio (14-18) Glucose (80-115) mg/dL POC Glucose 112 (80-115) mg/dL Hemoglobin A1c 6.80 H (4.50-6.20) % Calcium (8.5-10.1) mg/dL Magnesium (1.8-2.4) mg/dl Med Orders - Current: Current Medications Acetaminophen (Tylenol) 650 mg PO Q4H PRN PRN Reason: Pain (Mild 1-3)/fever Hydrocodone Bitart/Acetaminophen ([place] 325-5 Mg) 1 tab PO Q4H PRN PRN Reason: Pain (moderate 4-6) Albuterol/Ipratropium (Duoneb 3.0-0.5 Mg/3 Ml) 3 ml NEB Q4H PRN PRN Reason: Shortness Of Breath/wheezing Aspirin (Ecotrin) 325 mg PO DAILY [facility] Last Admin: 12/02/16 09:51 Dose: 325 mg Bisacodyl (Dulcolax) 5 mg PO DAILY PRN PRN Reason: Constipation Calcium Carbonate (Calcium Carbonate/Vitamin D 1500 Mg-200 Unit) 1 tab PO DAILY [facility] Last Admin: 12/02/16 09:51 Dose: 1 tab Dextrose/Water (Dextrose 50% In Water) 50 ml IVPUSH ASDIRECTED PRN PRN Reason: Hypoglycemia Docusate Sodium (Colace) 100 mg PO BID PRN PRN Reason: Constipation Epinephrine HCl (Epipen) 0.3 mg IM ASDIRECTED PRN PRN Reason: beesting Fish Oil (Fish Oil) 1 gm PO BID [facility] Last Admin: 12/02/16 09:51 Dose: 1 gm Glipizide (Glucotrol) 10 mg PO DAILY [facility] Last Admin: 12/02/16 09:51 Dose: 10 mg Hydralazine HCl (Apresoline) 20 mg IVPUSH Q4H PRN PRN Reason: Hypertension Hydromorphone HCl (Dilaudid) 0.25 mg IVPUSH Q2H PRN PRN Reason: Pain (severe 7-10) Promethazine HCl 12.5 mg/ (Sodium Chloride) 50.5 mls @ 100 mls/hr IV Q6H PRN PRN Reason: Nausea/Vomiting Insulin Aspart (Novolog) 0 unit SUBCUT QIDACANDBED [facility] PRN Reason: Protocol Last Admin: 12/02/16 06:58 Dose: Not Given Insulin Detemir (Levemir) 40 unit SUBCUT BID [facility] Last Admin: 12/02/16 09:54 Dose: 40 units Lorazepam (Ativan) 0.5 mg IV Q6H PRN PRN Reason: Anxiety Magnesium Oxide (Magnesium Oxide) 400 mg PO DAILY [facility] Last Admin: 12/02/16 09:51 Dose: 400 mg Magnesium Sulfate (Pharmacy To Dose - Magnesium Replacement) 0 dose .XX ASDIRECTED PRN PRN Reason: RX TO MONITOR MAG LEVELS Metoprolol Tartrate (Lopressor) 5 mg IVPUSH Q4H PRN PRN Reason: Tachycardia Niacin (Niaspan) 500 mg PO BEDTIME [facility] Last Admin: 12/01/16 21:34 Dose: 500 mg Nitroglycerin (Nitrostat) 0.4 mg SL ASDIRECTED PRN PRN Reason: Chest Pain Ondansetron HCl (Zofran) 4 mg IV Q6H PRN PRN Reason: Nausea/Vomiting Glucosamn/Condroitn/ (C/Mn/[place] Tabs) 0 each PO DAILY [facility] Last Admin: 12/02/16 10:00 Dose: Not Given Victoza (Liraglutide (1.8 Mg)) 0 each SUBCUT BEDTIME [facility] Triamcinolone 0.1% Cr/ [place] 2% Mixture 0 each TOP BID PRN PRN Reason: Rash/PSORIASIS Co-Q-10 ( Ubidecarenone 200 Mg ) 0 each PO DAILY [facility] Last Admin: 12/02/16 10:01 Dose: Not Given Vitamin B Complex (Tabs) 0 each PO BEDTIME [facility] Polyethylene Glycol (Miralax) 17 gm PO DAILY PRN PRN Reason: Constipation Potassium Chloride (Pharmacy To Dose - Potassium Replacement) 0 dose .XX ASDIRECTED PRN PRN Reason: RX TO MONITOR K LEVELS Senna/Docusate Sodium (Senna Plus) 1 tab PO BID PRN PRN Reason: Constipation Simvastatin (Zocor) 40 mg PO BEDTIME [facility] Last Admin: 12/01/16 21:34 Dose: 40 mg Sodium Chloride (Saline Flush) 10 ml FLUSH ASDIRECTED PRN PRN Reason: Keep Vein Open Last Admin: 06/28/17 17:15 Dose: 10 ml Temazepam (Restoril) 15 mg PO BEDTIME PRN PRN Reason: Sleep Vit A/Vit C/Vit E/Selen/Cu/Zn/Lutei (Icaps Mv) 0.5 tab PO BEDTIME [facility] Last Admin: 12/01/16 21:34 Dose: 0.5 tab Discontinued Medications Hydromorphone HCl (Dilaudid) 0.25 mg IVPUSH Q2H PRN PRN Reason: Pain (severe 7-10) Sodium Chloride (Normal Saline) 1,000 mls @ 1,000 mls/hr IV ONETIME ONE Stop: 12/01/16 18:01 Last Admin: 12/01/16 17:14 Dose: 1,000 mls/hr - Exam General: Reports: alert, oriented, cooperative, no acute distress, other ( Morbidly Obese) HEENT: Reports: Pupils equal, Pupils reactive, EOMI, Mucous membr. moist/pink Neck: Reports: supple, trachea midline, no JVD, no thyromegaly, other (short and thick) Lungs: Reports: Clear to auscultation, Normal respiratory effort Cardiovascular: Reports: Regular Rate, Regular Rhythm Abdomen: Reports: bowel sounds present, soft, no tenderness, no distension, other (Obese) (Male) Exam: Penile Lesions Rectal (Males) Exam: Deferred Back Exam: Reports: Normal Inspection, Decreased Range of Motion Extremities: Reports: no edema, normal pulses, no tenderness/swelling, no clubbing, no cyanosis, no calf tenderness Skin: Reports: dry, intact, rash (diffuse) Neurological: Reports: no new focal deficit Psy/Mental Status: Reports: alert, normal affect, normal mood *Q Meaningful Use (DIS) - VTE *Q VTE Criteria *Q: - Stroke *Q Stroke Criteria *Q: - AMI *Q AMI Criteria *Q:
[2016-12-02 12:17] VITALS: BP 135/65
--- NOTE | 2016-12-03 10:35 | PCM.SN ---
- Free Text/Narrative Note: 12/02/2016 - 1830 Received notification from Utilization Review Nurse in regards to patient level of care. Dr. Lopez and I reviewed the patient medical record and recommended that observation services were appropriate from time of admission. I contacted Dr. Gillespie and discussed with him recommendations. Dr. Gillespie is in agreement. Utilization Review Nurse notified to proceed with patient notification as outlined in Code 44 policy Rimma Florez MD
== END 2016-12-02 14:20 | disposition home or self-care (01) ==
LOC: JD.ED 16:23 → JD.MS 19:23 → INTOOBSV 19:23
PROVIDERS: ADMIT Internal Medicine; ATTEND Internal Medicine
DX: I95.9 Hypotension, unspecified (principal); R55 Syncope and collapse; R42 Dizziness and giddiness; I25.10 Atherosclerotic heart disease of native coronary artery without angina pectoris; G47.33 Obstructive sleep apnea (adult) (pediatric); E11.9 Type 2 diabetes mellitus without complications; E78.5 Hyperlipidemia, unspecified; E66.9 Obesity, unspecified; Z68.41 Body mass index [BMI] 40.0-44.9, adult; Z79.4 Long term (current) use of insulin; Z79.82 Long term (current) use of aspirin; Z79.84 Long term (current) use of oral hypoglycemic drugs; Z79.899 Other long term (current) drug therapy; Z95.1 Presence of aortocoronary bypass graft; Z98.890 Other specified postprocedural states; Z87.891 Personal history of nicotine dependence
CPT/HCPCS: 36415; 71010; 80048; 80053; 82962; 83036; 83735; 84484; 85025; 93005; 93306; 96360; 97162; 97165; 99285; A9270; G0378; J1815; J7040; J7050; 99217; 99218; 99284

== ENCOUNTER 2017-03-12 03:15 | Emergency (ER) | payer MEDICARE, BC ==
[2017-03-12 03:29] VITALS: BP 122/86
--- NOTE | 2017-03-12 04:36 | EDM.PDOC ---
ED HPI GENERAL MEDICAL PROBLEM - General Source of Information: Reports: Patient, Family (, grandson), RN Notes Reviewed History Limitations: Reports: No Limitations Right Upper Eye Pain Score (Numeric/FACES): 4 <Bin Bull - Last Filed: 03/12/17 06:49> - History of Present Illness Onset: Today Onset Date: 03/12/17 Onset Time: 02:30 <Shawn Obando - Last Filed: 03/12/17 10:51> - General Chief Complaint: Neurological Problem Stated Complaint: [facility] Time Seen by Provider: 03/12/17 03:23 - History of Present Illness INITIAL COMMENTS - FREE TEXT/NARRATIVE: The patient states that he was sitting on the toilet around 02:00 this morning, when he started feeling lightheaded. He got up and walked about 5 feet before falling onto the ground, striking his face on a wall. He states that he recalls the fall, but may have fallen unconscious once landing on the ground. He denies having any chest pain, palpitations, dyspnea, nausea, or pain anywher, prior to the fall, however, the EMS form indicates that the patient told them that he had nausea prior to going into the bathroom. When EMS arrived, they found the patient to be hypotensive at 73/36 and bradycardic at 38. His SPO2 was low at 79%. I do not see documentation of it, but I am told that his Accu-Chek was around 120. The patient's vital signs improved en route to the ED, and have remained stable once in the ED. Accu-Chek shortly after arrival was 155. The patient presents with a scratch and laceration to his right eyebrow area, an abrasion to his lateral elbow, a strain to his right upper chest, and a laceration to the underside of his left fifth toe. He denies any other injuries. The patient states that he had a similar syncopal episode in 2013. He states that he was transferred to [place] where a full workup was done, including a coronary angiogram, and, ultimately, he was told that his syncope was due to metabolic acidosis caused by the metformin that he was taking. He has not taken metformin since. The patient denies recent illness. (Bin Bull) - Related Data Allergies Allergy/AdvReac Type Severity Reaction Status Date / Time metformin Allergy Cannot Verified 03/12/17 03:30 Remember venom-honey bee Allergy Anaphylactic Verified 03/12/17 03:30 [bee venom (honey bee)] Shock atorvastatin calcium AdvReac Muscle Verified 03/12/17 03:30 [From Lipitor] Aches Home Meds: Home Meds Aspirin 325 mg PO DAILY 02/03/15 [History] Calcium Carbonate/Vitamin D3 [Calcium 600 + D Tablet] 1 each PO DAILY 02/03/15 [ History] EPINEPHrine [Epipen 2-Ankit] 0.3 mg IM ASDIRECTED PRN 02/03/15 [History] Furosemide [Lasix] 40 mg PO DAILY 02/03/15 [History] Isosorbide Mononitrate [Imdur] 60 mg PO DAILY 02/03/15 [History] Lisinopril 5 mg PO DAILY 02/03/15 [History] Metoprolol Tartrate [Lopressor] 50 mg PO BID 02/03/15 [History] Multivitamin with Minerals [Multiple Vitamin] 0.5 tab PO DAILY 02/03/15 [History ] Nitroglycerin [Nitrostat] 0.4 mg SL ASDIRECTED PRN 02/03/15 [History] Potassium Chloride 20 meq PO DAILY 02/03/15 [History] Simvastatin [Zocor] 40 mg PO BEDTIME 02/03/15 [History] Triamcinolone. 1 applic TOP BID PRN 02/03/15 [History] Ubidecarenone [Coenzyme Q10] 200 mg PO DAILY 02/03/15 [History] Vitamin B Complex [B Complex] 0.5 each PO BEDTIME 02/03/15 [History] glipiZIDE [Glucotrol] 10 mg PO BEDTIME 02/03/15 [History] Insulin Glargine,Hum.Rec.Anlog [Toujeo Solostar] 80 unit SQ BEDTIME 12/01/16 [ History] Liraglutide [Victoza] 1.2 mg SUBCUT BEDTIME 12/01/16 [History] Magnesium Oxide [Magnesium] 400 mg PO DAILY 12/01/16 [History] Niacin 500 mg PO TID 12/01/16 [History] Past Medical History HEENT History: Reports: Impaired Vision Other HEENT History: wears glasses Cardiovascular History: Reports: CAD, High Cholesterol, Hypertension, CO (x 1) Respiratory History: Reports: Sleep Apnea (CPAP 12 nightly) Genitourinary History: Reports: Chronic Renal Insuffiency Musculoskeletal History: Reports: Arthritis Endocrine/Metabolic History: Reports: Diabetes, Type II, Obesity/BMI 30+ Dermatologic History: Reports: Psoriasis - Infectious Disease History Infectious Disease History: Reports: Chicken Pox, Measles, Mumps - Past Surgical History HEENT Surgical History: Reports: Oral Surgery (dental extractions) Cardiovascular Surgical History: Reports: Coronary Artery Bypass (x 4 vessel, ) GI Surgical History: Reports: Hernia, Abdominal (umbilical x 2) <JorgitoBin Debra Darlyn Filed: 03/12/17 06:49> Social & Family History - Family History Cardiac: Reports: Bypass, High Cholesterol, Hypertension, CO, Stent Neurological: Reports: Parkinson's Endocrine/Metabolic: Reports: Diabetes, type II Hematologic: Reports: None Dermatologic: Reports: None - Tobacco Use Smoking Status *Q: Former Smoker Years of Tobacco use: 48 Packs/Tins Daily: 4 Month Tobacco Last Used: Quit 07/06/08 Second Hand Smoke Exposure: No - Caffeine Use Caffeine Use: Reports: None - Alcohol Use Alcohol Use History: Yes Date/Time of Last Drink Comment: Quit around 1976 Alcohol Use in Last Twelve Months: No - Recreational Drug Use Recreational Drug Use: No - Living Situation & Occupation Living situation: Reports: , with Spouse Occupation: Retired <JorgitoBin Santizo Filed: 03/12/17 06:49> ED ROS GENERAL - Review of Systems Review Of Systems: See Below Constitutional: Reports: No Symptoms HEENT: Reports: No Symptoms Respiratory: Reports: No Symptoms Cardiovascular: Reports: No Symptoms Endocrine: Reports: No Symptoms GI/Abdominal: Reports: No Symptoms : Reports: No Symptoms Musculoskeletal: Reports: No Symptoms Skin: Reports: No Symptoms Neurological: Reports: No Symptoms Psychiatric: Reports: No Symptoms Hematologic/Lymphatic: Reports: No Symptoms Immunologic: Reports: No Symptoms <Bin Bull Debra Darlyn Filed: 03/12/17 06:49> - Physical Exam Exam: See Below Exam Limited By: No Limitations General Appearance: Alert, WD/WN, No Apparent Distress Eye Exam: Bilateral Eye: Normal Inspection Ears: Normal External Exam, Hearing Grossly Normal Nose: Normal Inspection, No Blood Throat/Mouth: Normal Inspection, Normal Lips, Normal Voice, No Airway Compromise Head Exam: Normocephalic, Other (there is a 3 cm vertical laceration to the right forehead that crosses the right eyebrow, parallel to a 2 cm scratch.) Neck: Normal Inspection, Full Range of Motion Respiratory/Chest: No Respiratory Distress, Lungs Clear, Normal Breath Sounds, No Accessory Muscle Use, Chest Non-Tender (including to the right upper chest) Cardiovascular: Normal Peripheral Pulses, Regular Rate, Rhythm, No Gallop, No JVD, No Murmur, No Rub GI/Abdominal: Normal Bowel Sounds, Soft, Non-Tender, No Organomegaly, No Distention, No Abnormal Bruit, No Mass, Other (Obese) (Male) Exam: Deferred Rectal (Males) Exam: Deferred Neuro Exam (Abbreviated): Alert, Oriented, Normal Cognition, No Motor/Sensory Deficits Back Exam: Normal Inspection, Full Range of Motion, NT Extremities: Normal Range of Motion, Normal Capillary Refill, Other (Laceration noted within the crease on the plantar aspect of the left 5th toe. An abrasion is noted to the lateral aspect of the right elbow.) Psychiatric: Normal Affect Skin Exam: Warm, Dry, Intact, Normal Color, No Rash <Bin Bull - Last Filed: 03/12/17 06:49> EKG INTERPRETATION EKG Date: 03/12/17 Time: 03:29 Rhythm: NSR Rate (Beats/Min): 93 [place]: LAD-Left [place] Deviation P-Wave: Present (1st degree AVB) QRS: RBBB (incomplete) ST-T: Depressed (anterior leads) QT: Prolonged (QTc 595 ms) Comparison: Change From Previous EKG (12/01/2016) <Bin Bull - Last Filed: 03/12/17 06:49> Course <Bin Bull - Last Filed: 03/12/17 06:49> <Shawn Obando - Last Filed: 03/12/17 10:51> - Vital Signs Last Recorded V/S: Last Vital Signs Temp 36.1 C 03/12/17 03:23 Pulse 90 03/12/17 03:23 Resp 18 03/12/17 03:23 BP 122/86 03/12/17 03:23 Pulse Ox 94 L 03/12/17 03:23 Orthostatic Blood Pressure [ 114/77 Standing] Orthostatic Blood Pressure [ 116/80 Sitting] Orthostatic Blood Pressure [ 107/74 Supine] - Orders/Labs/Meds Orders: Active Orders 24 hr Category Date Time Status EKG Documentation Completion [RC] STAT Care 03/12/17 04:04 Active EKG Documentation Completion [RC] STAT Care 03/12/17 07:12 Active Orthostatic Vital Signs [RC] STAT Care 03/12/17 04:05 Active Orthostatic Vital Signs [RC] STAT Care 03/12/17 04:25 Inactive Ang Chest [CT] Stat Exams 03/12/17 04:52 Taken Chest 2V [CR] Stat Exams 03/12/17 04:05 Taken Labs: Laboratory Tests 03/12/17 03/12/17 03/12/17 Range/Units 03:25 03:25 03:25 WBC 14.27 H (4.23-9.07) K/mm3 RBC 5.32 (4.63-6.08) M/mm3 Hgb 16.3 (13.7-17.5) gm/L Hct 48.7 (40.1-51.0) % MCV 91.5 (79.0-92.2) fl MCH 30.6 (25.7-32.2) pg MCHC 33.5 (32.2-35.5) g/dl RDW Std Deviation 47.2 H (35.1-43.9) fL Plt Count 291 (163-337) K/mm3 MPV 9.8 (9.4-12.3) fl Neutrophils % (Manual) 76 H (40-60) % Band Neutrophils % 10 (0-10) % Lymphocytes % (Manual) 11 L (20-40) % Atypical Lymphs % 0 % Monocytes % (Manual) 3 (2-10) % Eosinophils % (Manual) 0 L (0.8-7.0) % Basophils % (Manual) 0 L (0.2-1.2) Platelet Estimate Adequate RBC Morph Comment Normal PT 11.0 (8.0-13.0) SECONDS INR 1.01 APTT 24 (22-36) SECONDS D-Dimer, Quantitative 2.92 H (0.19-0.59) mg/L Sodium 144 (136-145) mEq/L Potassium 3.8 (3.5-5.1) mEq/L Chloride 102 (98-107) mEq/L Carbon Dioxide 30 (21-32) mEq/L Anion Gap 15.8 H (5-15) BUN 23 H (7-18) mg/dL Creatinine 1.9 H (0.7-1.3) mg/dL Est Cr Clr Drug Dosing TNP Estimated GFR (MDRD) 35 (>60) mL/min BUN/Creatinine Ratio 12.1 L (14-18) Glucose 161 H (80-115) mg/dL POC Glucose (80-115) mg/dL Calcium 9.4 (8.5-10.1) mg/dL Magnesium 2.2 (1.8-2.4) mg/dl Total Bilirubin 0.5 (0.2-1.0) mg/dL AST 20 (15-37) U/L ALT 35 (16-63) U/L Alkaline Phosphatase 47 (46-116) U/L Creatine Kinase (39-308) U/L CK-MB (CK-2) (0-3.6) ng/ml Troponin I 0.021 (0.00-0.056) ng/mL Total Protein 7.7 (6.4-8.2) g/dl Albumin 4.0 (3.4-5.0) g/dl Globulin 3.7 gm/dL Albumin/Globulin Ratio 1.1 (1-2) 03/12/17 03/12/17 03/12/17 Range/Units 03:40 07:15 09:00 WBC (4.23-9.07) K/mm3 RBC (4.63-6.08) M/mm3 Hgb (13.7-17.5) gm/L Hct (40.1-51.0) % MCV (79.0-92.2) fl MCH (25.7-32.2) pg MCHC (32.2-35.5) g/dl RDW Std Deviation (35.1-43.9) fL Plt Count (163-337) K/mm3 MPV (9.4-12.3) fl Neutrophils % (Manual) (40-60) % Band Neutrophils % (0-10) % Lymphocytes % (Manual) (20-40) % Atypical Lymphs % % Monocytes % (Manual) (2-10) % Eosinophils % (Manual) (0.8-7.0) % Basophils % (Manual) (0.2-1.2) Platelet Estimate RBC Morph Comment PT (8.0-13.0) SECONDS INR APTT (22-36) SECONDS D-Dimer, Quantitative (0.19-0.59) mg/L Sodium (136-145) mEq/L Potassium (3.5-5.1) mEq/L Chloride (98-107) mEq/L Carbon Dioxide (21-32) mEq/L Anion Gap (5-15) BUN (7-18) mg/dL Creatinine (0.7-1.3) mg/dL Est Cr Clr Drug Dosing Estimated GFR (MDRD) (>60) mL/min BUN/Creatinine Ratio (14-18) Glucose (80-115) mg/dL POC Glucose 155 H (80-115) mg/dL Calcium (8.5-10.1) mg/dL Magnesium (1.8-2.4) mg/dl Total Bilirubin (0.2-1.0) mg/dL AST (15-37) U/L ALT (16-63) U/L Alkaline Phosphatase (46-116) U/L Creatine Kinase (39-308) U/L CK-MB (CK-2) 3.0 (0-3.6) ng/ml Troponin I 0.076 H* 0.082 H* (0.00-0.056) ng/mL Total Protein (6.4-8.2) g/dl Albumin (3.4-5.0) g/dl Globulin gm/dL Albumin/Globulin Ratio (1-2) 03/12/17 Range/Units 09:00 WBC (4.23-9.07) K/mm3 RBC (4.63-6.08) M/mm3 Hgb (13.7-17.5) gm/L Hct (40.1-51.0) % MCV (79.0-92.2) fl MCH (25.7-32.2) pg MCHC (32.2-35.5) g/dl RDW Std Deviation (35.1-43.9) fL Plt Count (163-337) K/mm3 MPV (9.4-12.3) fl Neutrophils % (Manual) (40-60) % Band Neutrophils % (0-10) % Lymphocytes % (Manual) (20-40) % Atypical Lymphs % % Monocytes % (Manual) (2-10) % Eosinophils % (Manual) (0.8-7.0) % Basophils % (Manual) (0.2-1.2) Platelet Estimate RBC Morph Comment PT (8.0-13.0) SECONDS INR APTT (22-36) SECONDS D-Dimer, Quantitative (0.19-0.59) mg/L Sodium (136-145) mEq/L Potassium (3.5-5.1) mEq/L Chloride (98-107) mEq/L Carbon Dioxide (21-32) mEq/L Anion Gap (5-15) BUN (7-18) mg/dL Creatinine (0.7-1.3) mg/dL Est Cr Clr Drug Dosing Estimated GFR (MDRD) (>60) mL/min BUN/Creatinine Ratio (14-18) Glucose (80-115) mg/dL POC Glucose (80-115) mg/dL Calcium (8.5-10.1) mg/dL Magnesium (1.8-2.4) mg/dl Total Bilirubin (0.2-1.0) mg/dL AST (15-37) U/L ALT (16-63) U/L Alkaline Phosphatase (46-116) U/L Creatine Kinase 206 (39-308) U/L CK-MB (CK-2) (0-3.6) ng/ml Troponin I (0.00-0.056) ng/mL Total Protein (6.4-8.2) g/dl Albumin (3.4-5.0) g/dl Globulin gm/dL Albumin/Globulin Ratio (1-2) Meds: Medications Discontinued Medications Generic Name Dose Route Start Last Admin Trade Name Freq PRN Reason Stop Dose Admin Enoxaparin Sodium 140 mg 03/12/17 04:53 03/12/17 05:12 Lovenox SUBCUT 03/12/17 04:54 140 mg ONETIME ONE Administration Sodium Chloride 1,000 mls @ 150 mls/hr 03/12/17 05:00 03/12/17 05:10 Normal Saline IV 150 mls/hr ASDIRECTED JUAN Administration Sodium Chloride 100 mls @ 65 mls/hr 03/12/17 06:30 03/12/17 06:59 Normal Saline IV 65 mls/hr ASDIRECTED JUAN Administration Iopamidol 100 ml 03/12/17 06:30 03/12/17 06:58 Isovue-370 (76%) IVPUSH 03/12/17 06:31 100 ml ONETIME ONE Administration Iopamidol 50 ml 03/12/17 06:30 03/12/17 06:59 Isovue-370 (76%) IVPUSH 03/12/17 06:31 50 ml ONETIME ONE Administration Sodium Chloride 10 ml 03/12/17 06:30 03/12/17 06:59 Saline Flush FLUSH 10 ml ONETIME PRN Administration IV FLUSH - Re-Assessments/Exams Free Text/Narrative Re-Assessment/Exam: 03/12/17 04:43 The patient is not orthostatic. Two-view chest radiograph reviewed. Cardiac silhouette is at the upper limits of normal. No pulmonary vascular congestion. No pleural effusions. No focal infiltrate. No pneumothorax. Sternotomy wires noted. Formal read per the Radiologist pending. 03/12/17 04:54 The patient has some concerning test results. He has an elevated WBC count of 14.27 with a 10% bandemia, although he denies recent illness, and no site of infection has been found. The patient's D-dimer is elevated at 2.92. This could be due to a number of factors, including renal insufficiency and obesity, however, given the history of lightheadedness while on the toilet and near syncope or possible complete syncope after getting up off the toilet, without a finding of orthostasis here in the ED, there is concern for a pulmonary embolus. Additionally, the patient has new changes to his ECG including possible anterior wall ischemic changes. I would like to evaluate the patient for a pulmonary embolus. The patient has chronic renal insufficiency with a baseline BUN/Cr of 19/1.4 on 12/02/2016. Today it is elevated at 23/1.9 with a GFR of 35 - this may be due to continued use of Lasix with inadequate oral fluid intake, although it may be due to other factors, as his BUN is not all that high. While not ideal, I believe the benefit of ruling out a PE outweighs the transient harm to his kidneys. I have therefore ordered a CT angiogram of the chest along with IV fluid and Lovenox. The patient is already on aspirin. 03/12/17 05:09 The above was discussed with the patient, his , and grandson. I recommended that we proceed with a CT angiogram of the chest. I explained that the patient should expect worsening renal function for about one week before his renal function returns to its pre-angiogram level. Questions were answered, and the patient has agreed to proceed with the CT angiogram. 03/12/17 07:00 The patient has gone to CT scan, but the results are still pending. In the meantime, I have ordered a repeat troponin. Case discussed with Dr. Obando, and care of the patient turned over to him at this time, for change of shift. (Bin Bull) Free Text/Narrative Re-Assessment/Exam: 03/12/17 08:13care assumed from Dr. Bull at change of shift.his CT pulmonary and gram is negative for any obvious pulmonary embolism although the vasculature was not well filled. The red reports no definite pulmonary embolism. He didn't find a unruptured aneurysm of the ascending aorta 4 cm in size. Scattered opacities in the lower lobes may resume representing atelectasis. There is calcification of the aortic valve annulus and consultation of the mitral valve annulus as well as coronary calcifications. His second troponin came back elevated at 0.076 , just outside of the normal limits. However the initial one was 0.21. Therefore it is possible that he has suffered an acute myocardial infarction although looking at the second ECG there is minimal ST segment depression in V3 ,V4 only.Plan I'm going to try and get him up at the bedside and see how he has for being dizzy and lightheaded. He does not wish to stay in the hospital. 03/12/17 08:36 His orthostatic BPs are essentially normal. Lying there were 107 /74 pulse of 95 sitting 116/80 with a pulse of 94 and standing 114/77 with a pulse of 97. He did not feel dizzy or lightheaded standing at the bedside. due to the elevation of troponin value I will have it repeated at 0 900 with a total CPK and CK-MB fraction. 03/12/17 09:52 third troponin came back mildly elevated at 0.82. CK-MB fraction however is normal at 3.0 total CPK is 206 I'm not sure what to make of this slight elevation in his troponin after these many hours. especially in light of a normal CK-MB fraction at 3.0. He has no associated chest pain and discomfort in his right pectoral and anterior chest were he fell. However the explanation for his syncopal event is still unclear although I suspect was orthostatic hypotension because his blood pressures only 106 or so systolic.I advised the patient of his slight elevation of his troponin which at this time is of unclear significance. He has no central chest pain and does not wish to stay in the hospital. Therefore I do feel safe in sending him home as it's been several hours since his trauma.he will return if he develops any further chest pains.patient is already recognize that he is having some trouble with dizziness with standing and has cut back his blood pressure medications to metoprolol 12.5 mg once daily in the evening. I'm going to stop his Imdur completely as he says he's never had chest pains and is been on Imdur for many years. He may still require further reduction in medication if he continues to have orthostatic hypotension symptoms as the risk of falling are great. He will is advised follow-up with Dr. Huston in the clinic in 7-10 days time. He may be developing a component of autonomic nervous system dysfunction due to diabetes.hopefully blood pressure will improve off of the Imdur. (Shawn Obando) Departure <Bin Bull - Last Filed: 03/12/17 06:49> - Departure Time of Disposition: 10:18 Condition: Fair <Shawn Obando - Last Filed: 03/12/17 10:51> - Departure Disposition: Home, Self-Care 01 Clinical Impression: Syncope and collapse, Orthostatic hypotension Abrasion of face and extremities Qualifiers: Encounter type: initial encounter - Discharge Information Instructions: Abrasion, [id number], Hypotension, Syncope, [id number] Referrals: PCP,Unknown [Primary Care Provider] - Forms: ED Department Discharge Additional Instructions: evaluation in the emergency room this morning after syncope and collapse to the floor in your home this morning after getting up from the toilet. By history you 've already been cutting back substantially on your blood pressure medications because of persistent dizziness. Currently you are on 12.5 mg of metoprolol daily.your blood pressure remains very low in the emergency room at with the top number being 106-96. Therefore the cause of your syncope and collapse this morning is due to blood pressure being too low and especially when he stood up from sleep it dropped even further enough that there was not enough blood supply going to your head and brain and cause you to collapse. You suffered abrasions and superficial lacerations to her right forehead and after fifth undersurface of the toe. Contusion to the chest wall and right shoulder and contusion to the knees. Therefore I'm going to suggest discontinue your Imdur or isosorbide mononitrate tablet completely as I suspect it is keeping your blood pressure far too low. The risk of falling collapse and breaking bones is far too high. Further modifications to her medications may be required. Sometimes patients with diabetes will develop something called autonomic nervous system dysfunction which means that he stand up their blood pressures do not contract or narrow to keep the blood pressure up and they are prone to falling due to faints. Suggest follow-up with Dr. Huston in 7-10 days time to reassess your blood pressure. In the meantime wounds are to be cleansed daily with soap and water showering is okay then apply topical antibiotic such as bacitracin or Polysporin to the wounds until they are healed. You declined to have tetanus toxoid updated today. - My Orders Last 24 Hours: My Active Orders 03/12/17 07:12 EKG Documentation Completion [RC] STAT - Assessment/Plan Last 24 Hours: My Active Orders 03/12/17 07:12 EKG Documentation Completion [RC] STAT
[2017-03-12] MEDS ORDERED: Enoxaparin 150 MG/1 ML Syringe SUBCUT ONE (04:53)
[2017-03-12] MEDS ORDERED: Sodium Chloride 0.9% 1,000 ML IV SCH (05:00)
[2017-03-12] MEDS ORDERED: Iopamidol 755 Mg/ML 100 ML Bottle IVPUSH ONE (06:30)
[2017-03-12] MEDS ORDERED: Iopamidol 755 MG/ML 50 ML Bottle IVPUSH ONE (06:30)
[2017-03-12] MEDS ORDERED: Sodium Chloride 0.9% 100 ML IV SCH (06:30)
[2017-03-12] MEDS ORDERED: Sodium Chloride 0.9% 10 ML Syringe FLUSH PRN (06:30)
--- NOTE | 2017-03-14 10:26 | CR ---
Chest: Two views of the chest were obtained. Comparison: Prior chest x-ray of 12/01/16. Heart size and mediastinum are within normal limits for technique. Previous sternotomy is seen. Lungs are hyperinflated compatible with emphysematous change. Pleural thickening is noted along the lateral chest which appears to be chronic. Lungs are clear without acute infiltrates. Impression: 1. Findings as described above believed to be stable. 2. Nothing acute is appreciated. Diagnostic code #2
--- NOTE | 2017-03-14 10:26 | CT ---
CT chest Technique: Multiple axial sections were obtained through the chest. Intravenous contrast was utilized. Study has been performed as a pulmonary angiogram protocol. Comparison: Prior chest x-ray performed earlier on the same day, no previous chest CT. Findings: Pulmonary emboli are moderately well-opacified. No discrete filling defects are seen to indicate definite pulmonary embolism. Coronary artery calcification is seen. Previous sternotomy is noted. Previous CABG is seen. Ascending aorta is slightly aneurysmal with AP dimension of 4.2 cm. No pericardial thickening is seen. Right adrenal mass is identified. This measures 2.9 cm in size. Scattered degenerative change is noted within the spine on bone window settings. Slight increased density is seen within both lung bases believed to represent atelectasis. Mild areas of pleural thickening seen within the right chest which appear to be due to fat. Impression: 1. Nonspecific 2.9 cm right adrenal mass. No prior imaging is available to determine stability. If patient is an MRI candidate, MRI could be considered to further evaluate. 2. No findings of pulmonary embolism. Other incidental findings as noted above. Diagnostic code #3 Agree with preliminary report issued by [facility] ([facility] preliminary report dictated on 03/12/17, 8:54 AM Central Time)
== END 2017-03-12 10:30 | disposition home or self-care (01) ==
LOC: JD.ED 03:15
DX: I95.1 Orthostatic hypotension (principal); S01.111A Laceration without foreign body of right eyelid and periocular area, initial encounter; S91.115A Laceration without foreign body of left lesser toe(s) without damage to nail, initial encounter; E78.00 Pure hypercholesterolemia, unspecified; I12.9 Hypertensive chronic kidney disease with stage 1 through stage 4 chronic kidney disease, or unspecified chronic kidney disease; N18.9 Chronic kidney disease, unspecified; E11.22 Type 2 diabetes mellitus with diabetic chronic kidney disease; E66.9 Obesity, unspecified; Z87.891 Personal history of nicotine dependence; Z88.8 Allergy status to other drugs, medicaments and biological substances; Z91.030 Bee allergy status; Z79.82 Long term (current) use of aspirin; Z79.899 Other long term (current) drug therapy; Z79.4 Long term (current) use of insulin; W17.89XA Other fall from one level to another, initial encounter
CPT/HCPCS: 36415; 71020; 71275; 80053; 82550; 82553; 82962; 83735; 84484; 85025; 85379; 85610; 85730; 93005; 96360; 96361; 96372; 99285; J1650; J7030; J7040; J7050; Q9967

== ENCOUNTER 2020-01-26 08:01 | Emergency (ER) | payer MEDICARE, BC ==
[2020-01-26 08:17] VITALS: BP 149/95; PULSE 94
--- NOTE | 2020-01-26 08:47 | EDM.PDOC ---
ED HPI GENERAL MEDICAL PROBLEM - General Chief Complaint: Upper Extremity Injury/Pain Stated Complaint: RT SHOULDER PAIN Time Seen by Provider: 01/26/20 08:19 Source of Information: Reports: Patient, RN Notes Reviewed - History of Present Illness INITIAL COMMENTS - FREE TEXT/NARRATIVE: 74 yr old male presents with severe R shoulder pain. Started yesterday afternoon after no apparent injury. Pain is worse today. No pain at rest but severe pain with any type of motion. Pain does not radiate to forearm or hand. No weakness, numbness or tingling. He denies hx of prior shoulder problems. Right Shoulder Pain Score (Numeric/FACES): 10 - Related Data Allergies Allergy/AdvReac Type Severity Reaction Status Date / Time metformin Allergy Severe Cannot Verified 01/26/20 08:18 Remember venom-honey bee Allergy Severe Anaphylactic Verified 01/26/20 08:18 [bee venom (honey bee)] Shock atorvastatin calcium AdvReac Severe Muscle Verified 01/26/20 08:18 [From Lipitor] Aches Home Meds: Home Meds Aspirin 325 mg PO DAILY 02/03/15 [History] Calcium Carbonate/Vitamin D3 [Calcium 600 + D Tablet] 1 each PO DAILY 02/03/15 [History] EPINEPHrine [Epipen 2-Ankit] 0.3 mg IM ASDIRECTED PRN 02/03/15 [History] Furosemide [Lasix] 40 mg PO DAILY 02/03/15 [History] Isosorbide Mononitrate [Imdur] 60 mg PO DAILY 02/03/15 [History] Lisinopril 5 mg PO DAILY 02/03/15 [History] Metoprolol Tartrate [Lopressor] 50 mg PO BID 02/03/15 [History] Multivitamin with Minerals [Multiple Vitamin] 0.5 tab PO DAILY 02/03/15 [History] Nitroglycerin [Nitrostat] 0.4 mg SL ASDIRECTED PRN 02/03/15 [History] Potassium Chloride 20 meq PO DAILY 02/03/15 [History] Simvastatin [Zocor] 40 mg PO BEDTIME 02/03/15 [History] Triamcinolone. 1 applic TOP BID PRN 02/03/15 [History] Ubidecarenone [Coenzyme Q10] 200 mg PO DAILY 02/03/15 [History] Vitamin B Complex [B Complex] 0.5 each PO BEDTIME 02/03/15 [History] glipiZIDE [Glucotrol] 10 mg PO BEDTIME 02/03/15 [History] Insulin Glargine,Hum.Rec.Anlog [Toutravo Solostar] 80 unit SQ BEDTIME 12/01/16 [History] Liraglutide [Victoza] 1.2 mg SUBCUT BEDTIME 12/01/16 [History] Magnesium Oxide [Magnesium] 400 mg PO DAILY 12/01/16 [History] Niacin 500 mg PO TID 12/01/16 [History] predniSONE [Prednisone] 20 mg PO DAILY #5 tablet 01/26/20 [Rx] Past Medical History HEENT History: Reports: Impaired Vision Other HEENT History: wears glasses Cardiovascular History: Reports: CAD, High Cholesterol, Hypertension, [place] Respiratory History: Reports: Sleep Apnea Genitourinary History: Reports: Chronic Renal Insuffiency Musculoskeletal History: Reports: Arthritis Neurological History: Reports: None Psychiatric History: Reports: None Endocrine/Metabolic History: Reports: Diabetes, Type II, Obesity/BMI 30+ Hematologic History: Reports: None Immunologic History: Reports: None Dermatologic History: Reports: Psoriasis - Infectious Disease History Infectious Disease History: Reports: Chicken Pox, Measles, Mumps - Past Surgical History HEENT Surgical History: Reports: Oral Surgery Cardiovascular Surgical History: Reports: Coronary Artery Bypass GI Surgical History: Reports: Hernia, Abdominal Social & Family History - Family History Cardiac: Reports: Bypass, High Cholesterol, Hypertension, [place], Stent Neurological: Reports: Parkinson's Endocrine/Metabolic: Reports: Diabetes, type II Hematologic: Reports: None Dermatologic: Reports: None - Tobacco Use Smoking Status *Q: Never Smoker - Caffeine Use Caffeine Use: Reports: Coffee - Living Situation & Occupation Living situation: Reports: , with Spouse Occupation: Retired Review of Systems - Review of Systems Review Of Systems: See Below Constitutional: Denies: Chills, Fever Respiratory: Denies: Shortness of Breath Cardiovascular: Denies: Chest Pain, Palpitations GI/Abdominal: Denies: Abdominal Pain, Vomiting Musculoskeletal: Reports: Shoulder Pain. Denies: Arm Pain, Back Pain Skin: Reports: No Symptoms Neurological: Denies: Numbness, Tingling, Weakness ED EXAM, GENERAL - Physical Exam Exam: See Below General Appearance: Alert, No Apparent Distress Head: Atraumatic Neck: Supple Respiratory/Chest: No Respiratory Distress Extremities: Other (tender R ant shoulder, good passive ROM with some pain, very limited active motion with pain R ant. shoulder). No: Joint Swelling, Increased Warmth, Redness Neurological: Alert, Oriented, No Motor/Sensory Deficits Skin Exam: Warm, Dry, Normal Color, No Rash Course - Vital Signs Last Recorded V/S: Last Vital Signs Temp 97.1 F 01/26/20 08:15 Pulse 94 01/26/20 08:15 Resp 18 01/26/20 08:15 BP 149/95 H 01/26/20 08:15 Pulse Ox 97 01/26/20 08:15 - Orders/Labs/Meds Orders: Active Orders 24 hr Category Date Time Status Shoulder Comp Rt [CR] Stat Exams 01/26/20 08:26 Taken - Re-Assessments/Exams Free Text/Narrative Re-Assessment/Exam: 01/26/20 09:10 X rays of shoulder are good, sx and findings very compatable with tendonitis. Will treat with low dose 20 mg prednisone for 5 days. He is diabetic. I have warned him to be very careful with his diet for the next week and watch his sugars carefully. He also is going to benefit from PT, order provided. Departure - Departure Time of Disposition: 09:01 Disposition: Home, Self-Care 01 Condition: Fair Clinical Impression: Tendonitis - Discharge Information Prescriptions: predniSONE [Prednisone] 20 mg PO DAILY #5 tablet Referrals: Tucker Dsouza MD [Primary Care Provider] - Forms: ED Department Discharge Additional Instructions: rest arm and shoulder, no heavy lifting, alternate ice and heat as needed. Tylenol up to 3 times daily as needed. Prednisone 20 mg q AM for 5 days, first dose this morning. Pres[facility] has been [facility]. Physical Therapy, call for appt. Tuesday. See Dr Taylor, Orthopedist if not much better within 7 to 10 days, call [phone] for appt. as needed. Sepsis Event Note (ED) - Evaluation Sepsis Screening Result: No Definite Risk - Focused Exam Vital Signs: Vital Signs Temp Pulse Resp BP Pulse Ox 01/26/20 08:15 97.1 F 94 18 149/95 H 97 - My Orders Last 24 Hours: My Active Orders 01/26/20 08:26 Shoulder Comp Rt [CR] Stat - Assessment/Plan Last 24 Hours: My Active Orders 01/26/20 08:26 Shoulder Comp Rt [CR] Stat
--- NOTE | 2020-01-26 11:17 | CR ---
Right shoulder: 3 views of the right shoulder were obtained. Comparison: No previous shoulder exam. Mild degenerative spurring is noted within the glenoid. Acromioclavicular joint shows no abnormal narrowing. Osteopenia seen. No acute fracture or other abnormality is appreciated. Impression: 1. Mild degenerative spurring within the glenoid. 2. Osteopenia. Diagnostic code #3 This report was dictated in MDT
== END 2020-01-26 09:11 | disposition home or self-care (01) ==
LOC: JD.ED 08:01
DX: M77.9 Enthesopathy, unspecified (principal); I12.9 Hypertensive chronic kidney disease with stage 1 through stage 4 chronic kidney disease, or unspecified chronic kidney disease; E11.22 Type 2 diabetes mellitus with diabetic chronic kidney disease; N18.9 Chronic kidney disease, unspecified; I25.10 Atherosclerotic heart disease of native coronary artery without angina pectoris; I25.2 Old myocardial infarction; M19.90 Unspecified osteoarthritis, unspecified site; E66.9 Obesity, unspecified; Z68.41 Body mass index [BMI] 40.0-44.9, adult; Z88.8 Allergy status to other drugs, medicaments and biological substances; Z91.030 Bee allergy status; Z79.82 Long term (current) use of aspirin; Z79.4 Long term (current) use of insulin; Z79.899 Other long term (current) drug therapy
CPT/HCPCS: 73030-26-RT; 73030-RT; 99283

== ENCOUNTER 2020-02-09 10:05 | Emergency (ER) | payer MEDICARE, BC ==
[2020-02-09 10:16] VITALS: BP 94/51; PULSE 88
[2020-02-09] MEDS ORDERED: Loratadine 10 MG Tab PO ONE (10:35)
[2020-02-09] MEDS ORDERED: predniSONE 20 MG Tab PO ONE (10:35)
--- NOTE | 2020-02-09 11:31 | EDM.PDOC ---
ED HPI GENERAL MEDICAL PROBLEM - General Chief Complaint: Allergic Reaction Stated Complaint: BEE STING Time Seen by Provider: 02/09/20 10:25 Source of Information: Reports: Patient, RN Notes Reviewed - History of Present Illness INITIAL COMMENTS - FREE TEXT/NARRATIVE: 74 yr old male with bee sting R distal middle finger a short time ago. He removed the stinger. He started getting short of breath. He gave himself an epi pen injection [employer]. Breathing now back to normal. No throat swelling or tightness at time of exam. No rash, hives or itchiness. Hx of prior bee sting reactions, primarily respiratory. - Related Data Allergies Allergy/AdvReac Type Severity Reaction Status Date / Time metformin Allergy Severe Cannot Verified 02/09/20 10:16 Remember venom-honey bee Allergy Severe Anaphylactic Verified 02/09/20 10:16 [bee venom (honey bee)] Shock atorvastatin calcium AdvReac Severe Muscle Verified 02/09/20 10:16 [From Lipitor] Aches Home Meds: Home Meds Aspirin 325 mg PO DAILY 02/03/15 [History] Calcium Carbonate/Vitamin D3 [Calcium 600 + D Tablet] 1 each PO DAILY 02/03/15 [History] EPINEPHrine [Epipen 2-Ankit] 0.3 mg IM ASDIRECTED PRN 02/03/15 [History] Furosemide [Lasix] 40 mg PO DAILY 02/03/15 [History] Isosorbide Mononitrate [Imdur] 60 mg PO DAILY 02/03/15 [History] Lisinopril 5 mg PO DAILY 02/03/15 [History] Metoprolol Tartrate [Lopressor] 50 mg PO BID 02/03/15 [History] Multivitamin with Minerals [Multiple Vitamin] 0.5 tab PO DAILY 02/03/15 [History] Nitroglycerin [Nitrostat] 0.4 mg SL ASDIRECTED PRN 02/03/15 [History] Potassium Chloride 20 meq PO DAILY 02/03/15 [History] Simvastatin [Zocor] 40 mg PO BEDTIME 02/03/15 [History] Triamcinolone. 1 applic TOP BID PRN 02/03/15 [History] Ubidecarenone [Coenzyme Q10] 200 mg PO DAILY 02/03/15 [History] Vitamin B Complex [B Complex] 0.5 each PO BEDTIME 02/03/15 [History] glipiZIDE [Glucotrol] 10 mg PO BEDTIME 02/03/15 [History] Insulin Glargine,Hum.Rec.Anlog [Toutravo Solostar] 80 unit SQ BEDTIME 12/01/16 [History] Liraglutide [Victoza] 1.2 mg SUBCUT BEDTIME 12/01/16 [History] Magnesium Oxide [Magnesium] 400 mg PO DAILY 12/01/16 [History] Niacin 500 mg PO TID 12/01/16 [History] predniSONE [Prednisone] 20 mg PO DAILY #5 tablet 01/26/20 [Rx] Past Medical History HEENT History: Reports: Impaired Vision Other HEENT History: wears glasses Cardiovascular History: Reports: CAD, High Cholesterol, Hypertension, [place] Respiratory History: Reports: Sleep Apnea Genitourinary History: Reports: Chronic Renal Insuffiency Musculoskeletal History: Reports: Arthritis Neurological History: Reports: None Psychiatric History: Reports: None Endocrine/Metabolic History: Reports: Diabetes, Type II, Obesity/BMI 30+ Hematologic History: Reports: None Immunologic History: Reports: None Dermatologic History: Reports: Psoriasis - Infectious Disease History Infectious Disease History: Reports: Chicken Pox, Measles, Mumps - Past Surgical History HEENT Surgical History: Reports: Oral Surgery Cardiovascular Surgical History: Reports: Coronary Artery Bypass GI Surgical History: Reports: Hernia, Abdominal Social & Family History - Family History Cardiac: Reports: Bypass, High Cholesterol, Hypertension, [place], Stent Neurological: Reports: Parkinson's Endocrine/Metabolic: Reports: Diabetes, type II Hematologic: Reports: None Dermatologic: Reports: None - Tobacco Use Smoking Status *Q: Unknown Ever Smoked - Caffeine Use Caffeine Use: Reports: Coffee - Living Situation & Occupation Living situation: Reports: , with Spouse Occupation: Retired ED ROS ALLERGIC REACTION - Review of Systems Review Of Systems: See Below Constitutional: Denies: Fever, Chills HEENT: Denies: Throat Pain, Throat Swelling Respiratory: Reports: Shortness of Breath ( gone) Cardiovascular: Denies: Chest Pain GI/Abdominal: Denies: Abdominal Pain, Nausea, Vomiting Musculoskeletal: Denies: Back Pain Skin: Reports: No Symptoms Neurological: Reports: Dizziness (gone) ED EXAM GENERAL NO PERIP PULSE - Physical Exam Exam: See Below General Appearance: Alert, No Apparent Distress Eye Exam: Bilateral Eye: PERRL Head: Atraumatic. No: Facial Swelling Neck: Supple Respiratory/Chest: No Respiratory Distress, Lungs Clear, Normal Breath Sounds. No: Rhonchi, Wheezing Cardiovascular: Regular Rate, Rhythm Extremities: Normal Inspection, Normal Range of Motion Neurological: Alert, Oriented, No Motor/Sensory Deficits Skin Exam: Warm, Dry, Normal Color, No Rash Course - Vital Signs Last Recorded V/S: Last Vital Signs Temp 97.2 F 02/09/20 10:12 Pulse 88 02/09/20 10:12 Resp 16 02/09/20 10:12 BP 94/51 L 02/09/20 10:12 Pulse Ox 98 02/09/20 10:12 - Orders/Labs/Meds Meds: Medications Discontinued Medications Generic Name Dose Route Start Last Admin Trade Name Freq PRN Reason Stop Dose Admin Loratadine 10 mg 02/09/20 10:35 02/09/20 10:53 Claritin PO 02/09/20 10:36 10 mg ONETIME ONE Administration Prednisone 40 mg 02/09/20 10:35 02/09/20 10:53 Prednisone PO 02/09/20 10:36 40 mg ONETIME ONE Administration - Re-Assessments/Exams Free Text/Narrative Re-Assessment/Exam: 02/09/20 13:48 on recheck no addition swelling, no resp. distress, discharge instr. as documented. Departure - Departure Time of Disposition: 11:30 Disposition: Home, Self-Care 01 Condition: Fair Clinical Impression: Bee sting reaction - Discharge Information Instructions: Allergies, Adult, [id number] Referrals: Tucker Dsouza MD [Primary Care Provider] - Forms: ED Department Discharge Additional Instructions: ice packs and elevation. Return to ED as needed if symptoms worsening in any way. Sepsis Event Note (ED) - Evaluation Sepsis Screening Result: No Definite Risk - Focused Exam Vital Signs: Vital Signs Temp Pulse Resp BP Pulse Ox 02/09/20 10:12 97.2 F 88 16 94/51 L 98
== END 2020-02-09 11:39 | disposition home or self-care (01) ==
LOC: JD.ED 10:05
DX: T63.441A Toxic effect of venom of bees, accidental (unintentional), initial encounter (principal); I25.10 Atherosclerotic heart disease of native coronary artery without angina pectoris; E78.00 Pure hypercholesterolemia, unspecified; I12.9 Hypertensive chronic kidney disease with stage 1 through stage 4 chronic kidney disease, or unspecified chronic kidney disease; E11.22 Type 2 diabetes mellitus with diabetic chronic kidney disease; N18.9 Chronic kidney disease, unspecified; I25.2 Old myocardial infarction; M19.90 Unspecified osteoarthritis, unspecified site; E66.9 Obesity, unspecified; Z68.41 Body mass index [BMI] 40.0-44.9, adult; Z88.8 Allergy status to other drugs, medicaments and biological substances; Z91.038 Other insect allergy status
CPT/HCPCS: 99282; A9270; J7512; 99283

== ENCOUNTER 2020-05-22 17:36 | Emergency (ER) | payer MEDICARE, BC ==
[2020-05-22 18:01] VITALS: BP 164/92; PULSE 106
[2020-05-22] MEDS ORDERED: Sodium Chloride 0.9% 10 ML Syringe FLUSH PRN (18:04)
--- NOTE | 2020-05-22 18:18 | EDM.PDOC ---
ED HPI GENERAL MEDICAL PROBLEM - General Chief Complaint: Respiratory Problem Stated Complaint: COVID SYMPTOMS/COUGH/RUNNY NOSE Time Seen by Provider: 05/22/20 17:59 Source of Information: Reports: Patient, RN Notes Reviewed History Limitations: Reports: No Limitations - History of Present Illness INITIAL COMMENTS - FREE TEXT/NARRATIVE: Patient is a 75-year-old male who presents to the ED for his Covid symptoms. Patient notes he has been sick for 2 weeks. He is complaining of a cough, shortness of breath, and generalized fatigue and weakness. He thinks he has Covid but he has not been officially tested. On presentation to the ER, his O2 sats were 65% on room air, he was placed on 5 L nasal cannula and they improved to 86% he was subsequently placed on 12 L nonrebreather mask and his sats remained at around 86 to 88%. Patient pulse is 106 bpm, temperature is 98.7 F, respiratory rate is 33 breaths/min, blood pressure is 164/92. Patient states that his primary care provider is Tucker Huston. He notes he has diabetes, he does have heart issues, but is not aware of any lung issues. Patient is morbidly obese as well, his BMI is 44.8. 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 05/22/20 20:52 [bee venom (honey bee)] Shock atorvastatin calcium AdvReac Severe Muscle Verified 05/22/20 20:52 [From Lipitor] Aches Home Meds: Home Meds Calcium Carbonate/Vitamin D3 [Calcium 600 + D Tablet] 1 each PO DAILY 02/03/15 [History] EPINEPHrine [Epipen 2-Ankit] 0.3 mg IM ASDIRECTED PRN 02/03/15 [History] Metoprolol Tartrate [Lopressor] 50 mg PO BID 02/03/15 [History] Multivitamin with Minerals [Multiple Vitamin] 0.5 tab PO DAILY 02/03/15 [History] Nitroglycerin [Nitrostat] 0.4 mg SL ASDIRECTED PRN 02/03/15 [History] Potassium Chloride 20 meq PO DAILY 02/03/15 [History] Simvastatin [Zocor] 40 mg PO BEDTIME 02/03/15 [History] Ubidecarenone [Coenzyme Q10] 200 mg PO DAILY 02/03/15 [History] Vitamin B Complex [B Complex] 0.5 each PO BEDTIME 02/03/15 [History] Insulin Glargine,Hum.Rec.Anlog [Toushad Solostar] 80 unit SQ BEDTIME 12/01/16 [History] Liraglutide [Victoza] 1.2 mg SUBCUT BEDTIME 12/01/16 [History] Magnesium Oxide [Magnesium] 400 mg PO DAILY 12/01/16 [History] Niacin 500 mg PO TID 12/01/16 [History] Methotrexate 2.5 mg PO DAILY 05/22/20 [History] Past Medical History HEENT History: Reports: Impaired Vision Other HEENT History: wears glasses Cardiovascular History: Reports: CAD, High Cholesterol, Hypertension, CT Respiratory History: Reports: Sleep Apnea Genitourinary History: Reports: Chronic Renal Insuffiency Musculoskeletal History: Reports: Arthritis Endocrine/Metabolic History: Reports: Diabetes, Type II, Obesity/BMI 30+ Dermatologic History: Reports: Psoriasis - Infectious Disease History Infectious Disease History: Reports: Chicken Pox, Measles, Mumps - Past Surgical History HEENT Surgical History: Reports: Oral Surgery Cardiovascular Surgical History: Reports: Coronary Artery Bypass GI Surgical History: Reports: Hernia, Abdominal Social & Family History - Family History Cardiac: Reports: Bypass, High Cholesterol, Hypertension, CT, Stent Neurological: Reports: Parkinson's Endocrine/Metabolic: Reports: Diabetes, type II - Tobacco Use Tobacco Use Status *Q: Never Tobacco User - Caffeine Use Caffeine Use: Reports: Coffee - Recreational Drug Use Recreational Drug Use: No - Living Situation & Occupation Living situation: Reports: , with Spouse Occupation: Retired ED ROS GENERAL - Review of Systems Review Of Systems: Comprehensive ROS is negative, except as noted in HPI. ED EXAM, GENERAL - Physical Exam Exam: See Below Exam Limited By: No Limitations General Appearance: Alert, WD/WN, Mild Distress (pt is tachypneic, able to complete some sentences ) Respiratory/Chest: Respiratory Distress (mild generalized), Rhonchi (bilateral lung fisher) Cardiovascular: Normal Peripheral Pulses, Regular Rate, Rhythm, No Edema Peripheral Pulses: 2+: Radial (L), Radial (R) GI/Abdominal: Normal Bowel Sounds, Soft, Non-Tender, No Distention, No Mass Extremities: Normal Inspection, Normal Capillary Refill Neurological: Alert, Oriented, Normal Cognition, No Motor/Sensory Deficits Psychiatric: Normal Affect, Normal Mood Skin Exam: Warm, Dry, Intact, Normal Color, No Rash #1 Interpretation EKG Date: 05/22/20 Time: 19:33 Rhythm: NSR Rate (Beats/Min): 92 Avant: LAD-Left Avant Deviation (-43 ) QRS: RBBB (With LAFB pattern) ST-T: Normal QT: Prolonged (Mildly 489) EKG Interpretation Comments: EKG reviewed by myself and Dr. Obando. No major ST abnormalities are appreciated. Course - Vital Signs Last Recorded V/S: Last Vital Signs Temp 98.7 F 05/22/20 17:55 Pulse 106 H 05/22/20 17:55 Resp 33 H 05/22/20 17:55 BP 164/92 H 05/22/20 17:55 Pulse Ox 65 L 05/22/20 17:55 - Orders/Labs/Meds Orders: Active Orders 24 hr Category Date Time Status BIPAP Adult [RT BiPAP/CPAP] [RC] ASDIRECTED Care 05/22/20 18:13 Active EKG Documentation Completion [RC] STAT Care 05/22/20 18:03 Active Peripheral IV Care [RC] . DIRECTED Care 05/22/20 18:04 Active UA W/MICROSCOPIC [URIN] Stat Lab 05/22/20 18:55 Ordered Sodium Chloride 0.9% [Saline Flush] Med 05/22/20 18:04 Active 10 ml FLUSH ASDIRECTED PRN Isolation [COMM] Routine Oth 05/22/20 18:03 Ordered Peripheral IV Insertion Adult [OM.PC] Routine Oth 05/22/20 18:04 Ordered Medication Orders Sodium Chloride (Saline Flush) 10 ml FLUSH ASDIRECTED PRN PRN Reason: Keep Vein Open Last Admin: 05/22/20 18:13 Dose: 10 ml Documented by: PATRICIA Labs: Laboratory Tests 05/22/20 05/22/20 05/22/20 Range/Units 18:03 18:05 18:05 WBC 12.54 H (4.23-9.07) K/mm3 RBC 4.90 (4.63-6.08) M/mm3 Hgb 15.1 (13.7-17.5) gm/dl Hct 46.7 (40.1-51.0) % MCV 95.3 H D (79.0-92.2) fl MCH 30.8 (25.7-32.2) pg MCHC 32.3 (32.2-35.5) g/dl RDW Std Deviation 49.1 H (35.1-43.9) fL Plt Count 295 (163-337) K/mm3 MPV 10.1 (9.4-12.3) fl Neutrophils % (Manual) 92 H (40-60) % Band Neutrophils % 1 (0-10) % Lymphocytes % (Manual) 4 L (20-40) % Atypical Lymphs % 0 % Monocytes % (Manual) 3 (2-10) % Eosinophils % (Manual) 0 L (0.8-7.0) % Basophils % (Manual) 0 L (0.2-1.2) Platelet Estimate Adequate RBC Morph Comment Normal PT (9.7-12.0) SECONDS INR APTT (21.7-31.4) SECONDS D-Dimer, Quantitative (0.19-0.50) mg/L Puncture Site Rt radial ABG pH 7.45 (7.35-7.45) ABG pCO2 37.2 (35.0-45.0) mmHg ABG pO2 60.0 L (80.0-100.0) mmHg ABG HCO3 25.6 (22.0-26.0) meq/L ABG O2 Saturation 89.4 L (96.0-97.0) % ABG Base Excess 2.3 H (-2-2.0) Óscar Test Positive O2 Delivery Device Nrb Oxygen Flow Rate 12.0 FiO2 0.00 L (21.00-100.00) % Sodium (136-145) mEq/L Potassium (3.5-5.1) mEq/L Chloride (98-107) mEq/L Carbon Dioxide (21-32) mEq/L Anion Gap (5-15) BUN (7-18) mg/dL Creatinine (0.7-1.3) mg/dL Est Cr Clr Drug Dosing mL/min Estimated GFR (MDRD) (>60) mL/min BUN/Creatinine Ratio (14-18) Glucose (83-115) mg/dL Lactic Acid (0.4-2.0) mmol/L Calcium (8.5-10.1) mg/dL Magnesium (1.8-2.4) mg/dl Ferritin (26-388) ng/ml Total Bilirubin (0.2-1.0) mg/dL AST (15-37) U/L ALT (16-63) U/L Alkaline Phosphatase (46-116) U/L Lactate Dehydrogenase (85-227) U/L Troponin I (0.00-0.056) ng/mL C-Reactive Protein 28.0 H* (<1.0) mg/dL NT-Pro-B Natriuret Pep (0-125) pg/mL Total Protein (6.4-8.2) g/dl Albumin (3.4-5.0) g/dl Globulin gm/dL Albumin/Globulin Ratio (1-2) Influenza Type A RNA (NEGATIVE) Influenza Type B RNA (NEGATIVE) SARS-CoV-2 RNA (KARINA) (NEGATIVE) 05/22/20 05/22/20 05/22/20 Range/Units 18:05 18:05 18:05 WBC (4.23-9.07) K/mm3 RBC (4.63-6.08) M/mm3 Hgb (13.7-17.5) gm/dl Hct (40.1-51.0) % MCV (79.0-92.2) fl MCH (25.7-32.2) pg MCHC (32.2-35.5) g/dl RDW Std Deviation (35.1-43.9) fL Plt Count (163-337) K/mm3 MPV (9.4-12.3) fl Neutrophils % (Manual) (40-60) % Band Neutrophils % (0-10) % Lymphocytes % (Manual) (20-40) % Atypical Lymphs % % Monocytes % (Manual) (2-10) % Eosinophils % (Manual) (0.8-7.0) % Basophils % (Manual) (0.2-1.2) Platelet Estimate RBC Morph Comment PT 13.0 H (9.7-12.0) SECONDS INR 1.22 APTT 31.6 H (21.7-31.4) SECONDS D-Dimer, Quantitative 1.14 H (0.19-0.50) mg/L Puncture Site ABG pH (7.35-7.45) ABG pCO2 (35.0-45.0) mmHg ABG pO2 (80.0-100.0) mmHg ABG HCO3 (22.0-26.0) meq/L ABG O2 Saturation (96.0-97.0) % ABG Base Excess (-2-2.0) Óscar Test O2 Delivery Device Oxygen Flow Rate FiO2 (21.00-100.00) % Sodium 133 L D (136-145) mEq/L Potassium 4.4 (3.5-5.1) mEq/L Chloride 97 L (98-107) mEq/L Carbon Dioxide 28 (21-32) mEq/L Anion Gap 12.4 (5-15) BUN 26 H (7-18) mg/dL Creatinine 1.8 H (0.7-1.3) mg/dL Est Cr Clr Drug Dosing 37.74 mL/min Estimated GFR (MDRD) 37 (>60) mL/min BUN/Creatinine Ratio 14.4 (14-18) Glucose 295 H (83-115) mg/dL Lactic Acid (0.4-2.0) mmol/L Calcium 8.7 (8.5-10.1) mg/dL Magnesium 2.2 (1.8-2.4) mg/dl Ferritin (26-388) ng/ml Total Bilirubin 0.6 (0.2-1.0) mg/dL AST 25 (15-37) U/L ALT 28 (16-63) U/L Alkaline Phosphatase 40 L (46-116) U/L Lactate Dehydrogenase 408 H (85-227) U/L Troponin I 0.074 H* (0.00-0.056) ng/mL C-Reactive Protein (<1.0) mg/dL NT-Pro-B Natriuret Pep 3883 H (0-125) pg/mL Total Protein 7.1 (6.4-8.2) g/dl Albumin 2.7 L (3.4-5.0) g/dl Globulin 4.4 gm/dL Albumin/Globulin Ratio 0.6 L (1-2) Influenza Type A RNA (NEGATIVE) Influenza Type B RNA (NEGATIVE) SARS-CoV-2 RNA (KARINA) (NEGATIVE) 05/22/20 05/22/20 05/22/20 Range/Units 18:05 18:05 18:35 WBC (4.23-9.07) K/mm3 RBC (4.63-6.08) M/mm3 Hgb (13.7-17.5) gm/dl Hct (40.1-51.0) % MCV (79.0-92.2) fl MCH (25.7-32.2) pg MCHC (32.2-35.5) g/dl RDW Std Deviation (35.1-43.9) fL Plt Count (163-337) K/mm3 MPV (9.4-12.3) fl Neutrophils % (Manual) (40-60) % Band Neutrophils % (0-10) % Lymphocytes % (Manual) (20-40) % Atypical Lymphs % % Monocytes % (Manual) (2-10) % Eosinophils % (Manual) (0.8-7.0) % Basophils % (Manual) (0.2-1.2) Platelet Estimate RBC Morph Comment PT (9.7-12.0) SECONDS INR APTT (21.7-31.4) SECONDS D-Dimer, Quantitative (0.19-0.50) mg/L Puncture Site ABG pH (7.35-7.45) ABG pCO2 (35.0-45.0) mmHg ABG pO2 (80.0-100.0) mmHg ABG HCO3 (22.0-26.0) meq/L ABG O2 Saturation (96.0-97.0) % ABG Base Excess (-2-2.0) Óscar Test O2 Delivery Device Oxygen Flow Rate FiO2 (21.00-100.00) % Sodium (136-145) mEq/L Potassium (3.5-5.1) mEq/L Chloride (98-107) mEq/L Carbon Dioxide (21-32) mEq/L Anion Gap (5-15) BUN (7-18) mg/dL Creatinine (0.7-1.3) mg/dL Est Cr Clr Drug Dosing mL/min Estimated GFR (MDRD) (>60) mL/min BUN/Creatinine Ratio (14-18) Glucose (83-115) mg/dL Lactic Acid 2.0 (0.4-2.0) mmol/L Calcium (8.5-10.1) mg/dL Magnesium (1.8-2.4) mg/dl Ferritin 645 H (26-388) ng/ml Total Bilirubin (0.2-1.0) mg/dL AST (15-37) U/L ALT (16-63) U/L Alkaline Phosphatase (46-116) U/L Lactate Dehydrogenase (85-227) U/L Troponin I (0.00-0.056) ng/mL C-Reactive Protein (<1.0) mg/dL NT-Pro-B Natriuret Pep (0-125) pg/mL Total Protein (6.4-8.2) g/dl Albumin (3.4-5.0) g/dl Globulin gm/dL Albumin/Globulin Ratio (1-2) Influenza Type A RNA Negative (NEGATIVE) Influenza Type B RNA Negative (NEGATIVE) SARS-CoV-2 RNA (KARINA) Positive H (NEGATIVE) Meds: Medications Generic Name Dose Route Start Last Admin Trade Name Freq PRN Reason Stop Dose Admin Sodium Chloride 10 ml 05/22/20 18:04 05/22/20 18:13 Saline Flush FLUSH 10 ml ASDIRECTED PRN Administration Keep Vein Open Discontinued Medications Generic Name Dose Route Start Last Admin Trade Name Freq PRN Reason Stop Dose Admin Dexamethasone 6 mg 05/22/20 19:57 05/22/20 20:24 Decadron IVPUSH 05/22/20 19:58 6 mg ONETIME ONE Administration Remdesivir 200 mg/ Sodium 250 mls @ 250 mls/hr 05/22/20 19:57 05/22/20 20:29 Chloride IV 05/22/20 19:58 250 mls/hr ONETIME ONE Administration - Re-Assessments/Exams Free Text/Narrative Re-Assessment/Exam: 05/22/20 18:15 Patient is a 75-year-old male who presents to the ED for the evaluation of his ongoing respiratory distress and COVID symptoms. Patient is tachypneic, and requiring quite a bit of oxygen at this time. Orders for BiPAP have been placed, he will need hospital admission for his illness. 05/22/20 20:12 The patient is positive for COVID-19, all of his inflammatory markers are elevated. Trope is mildly elevated as well, there are no concerning changes on his EKG however and it is unchanged from prior EKG in 2017. Patient is on BiPAP at 80% FiO2 at this time at a rate of 13/6 and doing well satting around 97%, respiration rate has come down a little bit. I did call [facility] in [place] and was able to talk with Dr. Linares, and he graciously accepts the patient for ICU admission at [facility]. Remdesivir and dexamethasone has been started. Patient's chest x-ray was suboptimal, but there is diffuse increased density within both sides of the chest findings could represent pulmonary vascular congestion although given the history of Covid symptoms Covid pneumonia is also a possibility throughout both lungs. His BNP was elevated at 3883, so I do believe there is a combination of both. Departure - Departure Time of Disposition: 20:13 Disposition: DC/Tfer to [facility] 02 Condition: Fair Clinical Impression: COVID-19, Hypoxia - Discharge Information *PRESCRIPTION DRUG MONITORING PROGRAM REVIEWED*: No *COPY OF PRESCRIPTION DRUG MONITORING REPORT IN PATIENT SHYLA: No Referrals: Tucker Dsouza MD [Primary Care Provider] - Forms: ED Department Discharge Sepsis Event Note (ED) - Evaluation Sepsis Screening Result: Possible Sepsis Risk - Focused Exam Vital Signs: Vital Signs Temp Pulse Resp BP Pulse Ox 05/22/20 17:55 98.7 F 106 H 33 H 164/92 H 65 L - My Orders Last 24 Hours: My Active Orders 05/22/20 18:03 EKG Documentation Completion [RC] STAT Isolation [COMM] Routine 05/22/20 18:04 Peripheral IV Care [RC] . DIRECTED Sodium Chloride 0.9% [Saline Flush] 10 ml FLUSH ASDIRECTED PRN Peripheral IV Insertion Adult [OM.PC] Routine 05/22/20 18:13 BIPAP Adult [RT BiPAP/CPAP] [RC] ASDIRECTED 05/22/20 18:55 UA W/MICROSCOPIC [URIN] Stat - Assessment/Plan Last 24 Hours: My Active Orders 05/22/20 18:03 EKG Documentation Completion [RC] STAT Isolation [COMM] Routine 05/22/20 18:04 Peripheral IV Care [RC] . DIRECTED Sodium Chloride 0.9% [Saline Flush] 10 ml FLUSH ASDIRECTED PRN Peripheral IV Insertion Adult [OM.PC] Routine 05/22/20 18:13 BIPAP Adult [RT BiPAP/CPAP] [RC] ASDIRECTED 05/22/20 18:55 UA W/MICROSCOPIC [URIN] Stat
[2020-05-22 19:30] LABS: CORONAVIRUS COVID-19 NAA POSITIVE (NEGATIVE)
[2020-05-22] MEDS ORDERED: Dexamethasone 10 MG/ML SDV IVPUSH ONE (19:57)
[2020-05-22] MEDS ORDERED: REMDESIVIR 200 MG in Sodium Chloride 0.9% 250 ML IV ONE (19:57)
--- NOTE | 2020-05-22 20:04 | CR ---
Chest: Portable view of the chest was obtained. Comparison: Prior chest x-ray of 03/12/70. Heart is enlarged. Upper mediastinum is within normal limits for portable technique. Prior sternotomy is seen. Diffuse increased density is seen within both sides of the chest. Bony structures are grossly intact. Impression: 1. Suboptimal study. 2. Diffuse increased density within both sides of the chest. Findings could represent pulmonary vascular congestion although given the history of COVID symptoms, COVID pneumonia is also a possibility throughout both lungs. Diagnostic code #3
== END 2020-05-22 21:22 ==
LOC: JD.ED 17:36
DX: U07.1 COVID-19 (principal); R09.02 Hypoxemia; I12.9 Hypertensive chronic kidney disease with stage 1 through stage 4 chronic kidney disease, or unspecified chronic kidney disease; N18.9 Chronic kidney disease, unspecified; I25.2 Old myocardial infarction; I25.10 Atherosclerotic heart disease of native coronary artery without angina pectoris; E78.00 Pure hypercholesterolemia, unspecified; E66.9 Obesity, unspecified; Z68.41 Body mass index [BMI] 40.0-44.9, adult; Z88.8 Allergy status to other drugs, medicaments and biological substances; Z91.030 Bee allergy status; Z79.4 Long term (current) use of insulin; Z79.899 Other long term (current) drug therapy; E11.22 Type 2 diabetes mellitus with diabetic chronic kidney disease
CPT/HCPCS: 0240U; 36415; 36600; 71045; 71045-26; 80053; 82728; 82803; 83605; 83615; 83735; 83880; 84484; 85007; 85027; 85379; 85610; 85730; 86140; 93005; 93010; 94660; 96365; 96375; 99284; 99285-25; J1100; J7050

== ENCOUNTER 2021-12-04 17:31 | Emergency (ER) | payer MEDICARE, BC | END 2021-12-04 19:15 | LOC: JD.ED 17:31 | DX: R31.9 Hematuria, unspecified (principal); Z53.21 Procedure and treatment not carried out due to patient leaving prior to being seen by health care provider ==

== ENCOUNTER 2022-10-03 08:49 | Emergency (ER) | payer MEDICARE, BC ==
[2022-10-03] MEDS ORDERED: Sodium Chloride 0.9% 10 ML Syringe FLUSH PRN (09:21)
[2022-10-03] MEDS ORDERED: Sodium Chloride 0.9% 10 ML Syringe FLUSH ONE (09:40)
[2022-10-03] MEDS ORDERED: Iopamidol 612 MG/ML 100 ML Bottle IVPUSH ONE (09:40)
[2022-10-03] MEDS ORDERED: cefTRIAXone 2 GM in Sodium Chloride 0.9% 100 ML IV ONE (10:26)
[2022-10-03] MEDS ORDERED: Sodium Chloride 0.9% 1,000 ML IV ONE (10:27)
[2022-10-03 12:35] VITALS: PULSE 81
[2022-10-03] MEDS ORDERED: metroNIDAZOLE/Normal Saline 500 MG in Premix Bag 1 BAG IV ONE (13:49)
[2022-10-03] MEDS ORDERED: Sodium Chloride 0.9% 1,000 ML IV SCH (14:00)
[2022-10-03] MEDS ORDERED: HYDROmorphone 0.5 MG/0.5 ML Syringe IVPUSH ONE (15:22)
[2022-10-03 15:49] VITALS: BP 145/62
== END 2022-10-03 15:35 ==
LOC: JD.ED 08:49
DX: A41.9 Sepsis, unspecified organism (principal); K80.00 Calculus of gallbladder with acute cholecystitis without obstruction; I48.91 Unspecified atrial fibrillation; I12.9 Hypertensive chronic kidney disease with stage 1 through stage 4 chronic kidney disease, or unspecified chronic kidney disease; E11.22 Type 2 diabetes mellitus with diabetic chronic kidney disease; N18.9 Chronic kidney disease, unspecified; I25.2 Old myocardial infarction; E66.9 Obesity, unspecified; Z68.30 Body mass index [BMI] 30.0-30.9, adult; Z91.030 Bee allergy status; Z91.011 Allergy to milk products; Z86.16 Personal history of COVID-19; Z79.899 Other long term (current) drug therapy; Z87.891 Personal history of nicotine dependence
CPT/HCPCS: 36415; 71045; 74177; 80053; 81001; 83605; 83690; 84484; 85025; 86140; 87040; 93005; 96361; 96365; 96367; 96375; 99285; J0696; J1170; J3490; J7030; Q9967; 93010

== ENCOUNTER 2024-05-14 04:53 | Emergency (ER) | payer MEDICARE, BC ==
[2024-05-14] MEDS: Oxymetazoline 0.05% Nasal Spray 30 ML Bottle NAS ONE (05:33)
[2024-05-14] MEDS: Tranexamic Acid 1,000 MG/10 ML Vial NEB ONE (05:33)
[2024-05-14 05:57] LABS: BASOPHILS ABSOLUTE AUTO 0.1 K/mm3 (0.0-0.2); BASOPHILS PERCENT AUTO 0.9 % (0.0-1.0); EOSINOPHILS ABSOLUTE AUTO 0.1 K/mm3 (0.0-0.4); EOSINOPHILS PERCENT AUTO 2.1 % (0.0-6.0); HEMATOCRIT 34.7 % (42.0-52.0); HEMOGLOBIN 10.6 gm/dl (14.0-18.0); IMMATURE GRAN ABSOLUTE AUTO 0.04 K/mm3 (0.00-0.05); IMMATURE GRAN PERCENT AUTO 0.6 % (0.0-0.4); LYMPHOCYTES ABSOLUTE AUTO 0.8 K/mm3 (1.0-4.8); LYMPHOCYTES PERCENT AUTO 12.3 % (24.0-44.0); MEAN CORPUSCULAR HEMOGLOBIN 24.7 pg (28.0-32.0); MEAN CORPUSCULAR HGB CONC 30.5 g/dl (32.0-36.0); MEAN CORPUSCULAR VOLUME 80.9 fl (83.0-99.0); MEAN PLATELET VOLUME 9.4 fl (9.4-12.4); MONOCYTES ABSOLUTE AUTO 0.7 K/mm3 (0.0-0.8); MONOCYTES PERCENT AUTO 10.6 % (0.0-8.0); NEUTROPHILS PERCENT AUTO 73.5 % (41.0-71.0); PLATELET COUNT,PLT 233 K/mm3 (150-400); RED BLOOD CELL COUNT 4.29 M/mm3 (4.52-5.90); WHITE BLOOD CELL COUNT,WBC 6.77 K/mm3 (3.9-11.3)
[2024-05-14 06:17] LABS: INR 1.26; PROTHROMBIN TIME 13.2 SECONDS (9.7-12.0)
[2024-05-14 06:19] LABS: PTT,PARTIAL THROMBOPLSTIN TIME 34.5 SECONDS (21.7-31.4)
[2024-05-14 06:24] LABS: ALBUMIN 3.2 g/dl (3.4-5.0); ANION GAP 15.3 (5-15); BILIRUBIN TOTAL 0.7 mg/dL (0.2-1.0); BUN/CREATININE RATIO 15.6 (14-18); CALCIUM 8.6 mg/dL (8.5-10.1); CREATININE 1.6 mg/dL (0.7-1.3); EST CRCL DRUG DOSING (CG) 39.92 mL/min; POTASSIUM,K 4.3 mEq/L (3.5-5.1); PROTEIN TOTAL,TP 6.3 g/dl (6.4-8.2)
[2024-05-14 11:30] VITALS: BP 165/79; PULSE 96
== END 2024-05-14 11:25 | disposition home or self-care (01) ==
LOC: JD.ED 04:53
DX: R04.0 Epistaxis (principal); I25.10 Atherosclerotic heart disease of native coronary artery without angina pectoris; I25.2 Old myocardial infarction; I12.9 Hypertensive chronic kidney disease with stage 1 through stage 4 chronic kidney disease, or unspecified chronic kidney disease; N18.9 Chronic kidney disease, unspecified; E78.00 Pure hypercholesterolemia, unspecified; M19.90 Unspecified osteoarthritis, unspecified site; E11.22 Type 2 diabetes mellitus with diabetic chronic kidney disease; E66.9 Obesity, unspecified; Z86.16 Personal history of COVID-19; Z95.5 Presence of coronary angioplasty implant and graft; Z88.1 Allergy status to other antibiotic agents; Z88.8 Allergy status to other drugs, medicaments and biological substances; Z91.030 Bee allergy status; Z91.011 Allergy to milk products; Z79.4 Long term (current) use of insulin; Z79.01 Long term (current) use of anticoagulants; Z79.82 Long term (current) use of aspirin; Z79.899 Other long term (current) drug therapy; Z68.41 Body mass index [BMI] 40.0-44.9, adult
CPT/HCPCS: 30901; 36415; 80053; 85025; 85610; 85730; 94640; 99283; A9270

== ENCOUNTER 2024-05-16 09:36 | Emergency (ER) | payer MEDICARE, BC ==
[2024-05-16 09:57] VITALS: BP 126/67; PULSE 75
== END 2024-05-16 12:09 | disposition home or self-care (01) ==
LOC: JD.ED 09:36
DX: R04.0 Epistaxis (principal); I12.9 Hypertensive chronic kidney disease with stage 1 through stage 4 chronic kidney disease, or unspecified chronic kidney disease; N18.9 Chronic kidney disease, unspecified; I25.10 Atherosclerotic heart disease of native coronary artery without angina pectoris; I25.2 Old myocardial infarction; E11.22 Type 2 diabetes mellitus with diabetic chronic kidney disease; E66.9 Obesity, unspecified; Z79.4 Long term (current) use of insulin; Z79.82 Long term (current) use of aspirin; Z79.899 Other long term (current) drug therapy; Z79.01 Long term (current) use of anticoagulants; Z86.16 Personal history of COVID-19; Z79.85 Long-term (current) use of injectable non-insulin antidiabetic drugs; Z95.1 Presence of aortocoronary bypass graft; Z88.8 Allergy status to other drugs, medicaments and biological substances; Z91.011 Allergy to milk products; Z91.030 Bee allergy status; Z91.09 Other allergy status, other than to drugs and biological substances; Z68.41 Body mass index [BMI] 40.0-44.9, adult
CPT/HCPCS: 99282

== ENCOUNTER 2024-08-09 17:33 | Emergency (ER) | payer MEDICARE, BC ==
[2024-08-09] MEDS ORDERED: Sodium Chloride 0.9% 10 ML Syringe FLUSH PRN (17:40)
[2024-08-09 18:24] LABS: BICARBONATE,VENOUS 25.3 meq/L (22-26); O2 SATURATION VENOUS 81.8; PH,VENOUS 7.48 (7.30-7.40)
[2024-08-09 18:27] LABS: BASOPHILS ABSOLUTE AUTO 0.1 K/mm3 (0.0-0.2); BASOPHILS PERCENT AUTO 0.3 % (0.0-1.0); EOSINOPHILS ABSOLUTE AUTO 0.2 K/mm3 (0.0-0.4); EOSINOPHILS PERCENT AUTO 0.9 % (0.0-6.0); HEMATOCRIT 36.2 % (42.0-52.0); HEMOGLOBIN 10.9 gm/dl (14.0-18.0); IMMATURE GRAN ABSOLUTE AUTO 0.19 K/mm3 (0.00-0.05); LYMPHOCYTES ABSOLUTE AUTO 0.6 K/mm3 (1.0-4.8); MEAN CORPUSCULAR HEMOGLOBIN 27.1 pg (28.0-32.0); MEAN CORPUSCULAR HGB CONC 30.1 g/dl (32.0-36.0); MEAN PLATELET VOLUME 9.8 fl (9.4-12.4); MONOCYTES ABSOLUTE AUTO 1.7 K/mm3 (0.0-0.8); MONOCYTES PERCENT AUTO 8.6 % (0.0-8.0); NEUTROPHILS ABSOLUTE AUTO 17.2 K/mm3 (1.8-7.7); NEUTROPHILS PERCENT AUTO 86.2 % (41.0-71.0); PLATELET COUNT,PLT 173 K/mm3 (150-400); RED BLOOD CELL COUNT 4.02 M/mm3 (4.52-5.90)
[2024-08-09 19:02] LABS: A/G RATIO 0.8 (1-2); ALBUMIN 2.9 g/dl (3.4-5.0); ANION GAP 15.5 (5-15); BILIRUBIN TOTAL 0.9 mg/dL (0.2-1.0); BUN/CREATININE RATIO 16.5 (14-18); C-REACTIVE PROTEIN 17.92 mg/dL (<0.30); CALCIUM 8.6 mg/dL (8.5-10.1); CREATININE 2.3 mg/dL (0.7-1.3); EST CRCL DRUG DOSING (CG) 27.77 mL/min; MAGNESIUM 2.2 mg/dL (1.8-2.4); POTASSIUM,K 4.5 mEq/L (3.5-5.1); PROTEIN TOTAL,TP 6.5 g/dl (6.4-8.2)
[2024-08-09 19:03] LABS: LACTIC ACID 3.1 mmol/L (0.4-2.0)
[2024-08-09] MEDS: Sodium Chloride 0.9% 500 ML IV ONE (19:05)
[2024-08-09] MEDS: Meropenem 1 GM in Sodium Chloride 0.9% 100 ML IV ONE (19:06)
[2024-08-09 19:21] LABS: CORONAVIRUS COVID-19 NAA NEGATIVE (NEGATIVE); INFLUENZA A NAA NEGATIVE (NEGATIVE); RESPIRATORY SYNCYTIAL VIR NAA NEGATIVE (NEGATIVE)
[2024-08-09] MEDS: Sodium Chloride 0.9% 1,000 ML IV ONE (19:42)
[2024-08-09] MEDS: Furosemide 40 MG/4 ML VIAL IVPUSH ONE (23:30)
[2024-08-10] MEDS: Furosemide 40 MG/4 ML VIAL IVPUSH ONE (04:07)
[2024-08-10] MEDS: Meropenem 1 GM in Sodium Chloride 0.9% 100 ML IV ONE (07:58)
[2024-08-10 07:59] LABS: BASOPHILS PERCENT AUTO 0.2 % (0.0-1.0); EOSINOPHILS PERCENT AUTO 0.1 % (0.0-6.0); HEMATOCRIT 33.4 % (42.0-52.0); IMMATURE GRAN ABSOLUTE AUTO 0.23 K/mm3 (0.00-0.05); IMMATURE GRAN PERCENT AUTO 1.4 % (0.0-0.4); LYMPHOCYTES ABSOLUTE AUTO 0.8 K/mm3 (1.0-4.8); LYMPHOCYTES PERCENT AUTO 4.7 % (24.0-44.0); MEAN CORPUSCULAR HEMOGLOBIN 27.3 pg (28.0-32.0); MEAN CORPUSCULAR HGB CONC 29.9 g/dl (32.0-36.0); MEAN CORPUSCULAR VOLUME 91.3 fl (83.0-99.0); MEAN PLATELET VOLUME 10.6 fl (9.4-12.4); MONOCYTES ABSOLUTE AUTO 1.8 K/mm3 (0.0-0.8); MONOCYTES PERCENT AUTO 10.5 % (0.0-8.0); NEUTROPHILS PERCENT AUTO 83.1 % (41.0-71.0); PLATELET COUNT,PLT 157 K/mm3 (150-400); RED BLOOD CELL COUNT 3.66 M/mm3 (4.52-5.90); WHITE BLOOD CELL COUNT,WBC 16.82 K/mm3 (3.9-11.3)
[2024-08-10 08:24] LABS: SLIDE REVIEW ABNORMAL SMEAR
[2024-08-10 08:47] LABS: A/G RATIO 0.8 (1-2); ALBUMIN 2.5 g/dl (3.4-5.0); ANION GAP 10.4 (5-15); BILIRUBIN TOTAL 0.8 mg/dL (0.2-1.0); CALCIUM 8.1 mg/dL (8.5-10.1); CREATININE 2.1 mg/dL (0.7-1.3); EST CRCL DRUG DOSING (CG) 30.42 mL/min; MAGNESIUM 2.3 mg/dL (1.8-2.4); POTASSIUM,K 4.4 mEq/L (3.5-5.1); PROTEIN TOTAL,TP 5.7 g/dl (6.4-8.2)
[2024-08-10] MEDS: Sodium Chloride 0.9% 1,000 ML IV SCH (09:35)
[2024-08-10] MEDS: Pantoprazole 40 MG Tab.CR PO SCH (12:23)
[2024-08-10] MEDS: DULoxetine 20 MG Cap PO ONE (12:23)
[2024-08-10] MEDS: Insulin Lispro 100 Unit/ML 3 ML KwikPen SUBCUT SCH (12:50)
[2024-08-10 14:14] VITALS: BP 134/67; PULSE 82
== END 2024-08-10 13:20 ==
LOC: JD.ED 17:33
DX: R19.09 Other intra-abdominal and pelvic swelling, mass and lump (principal); I12.9 Hypertensive chronic kidney disease with stage 1 through stage 4 chronic kidney disease, or unspecified chronic kidney disease; N18.9 Chronic kidney disease, unspecified; E11.22 Type 2 diabetes mellitus with diabetic chronic kidney disease; I25.2 Old myocardial infarction; I25.10 Atherosclerotic heart disease of native coronary artery without angina pectoris; E78.00 Pure hypercholesterolemia, unspecified; Z95.5 Presence of coronary angioplasty implant and graft; Z91.030 Bee allergy status; Z88.8 Allergy status to other drugs, medicaments and biological substances; Z79.01 Long term (current) use of anticoagulants; Z91.011 Allergy to milk products; Z79.899 Other long term (current) drug therapy; Z79.4 Long term (current) use of insulin; Z79.85 Long-term (current) use of injectable non-insulin antidiabetic drugs; Z86.16 Personal history of COVID-19; Z95.1 Presence of aortocoronary bypass graft
CPT/HCPCS: 0241U; 36415; 71045; 76881; 80053; 82803; 82947; 83605; 83735; 83880; 84145; 84484; 85025; 86140; 87040; 87077; 87154; 87186; 93005; 93306; 96361; 96365; 96366; 96375; 96376; 99285; A9270; J1815; J1940; J2185; J7030; 93010; 93926-RT

== ENCOUNTER 2024-08-17 09:44 | Emergency (ER) | payer MEDICARE, BC ==
[2024-08-17 11:50] LABS: BASOPHILS ABSOLUTE AUTO 0.1 K/mm3 (0.0-0.2); BASOPHILS PERCENT AUTO 0.5 % (0.0-1.0); EOSINOPHILS PERCENT AUTO 0.3 % (0.0-6.0); HEMATOCRIT 34.9 % (42.0-52.0); HEMOGLOBIN 10.4 gm/dl (14.0-18.0); IMMATURE GRAN ABSOLUTE AUTO 0.34 K/mm3 (0.00-0.05); IMMATURE GRAN PERCENT AUTO 2.9 % (0.0-0.4); LYMPHOCYTES ABSOLUTE AUTO 0.7 K/mm3 (1.0-4.8); LYMPHOCYTES PERCENT AUTO 5.7 % (24.0-44.0); MEAN CORPUSCULAR HEMOGLOBIN 26.1 pg (28.0-32.0); MEAN CORPUSCULAR HGB CONC 29.8 g/dl (32.0-36.0); MEAN PLATELET VOLUME 10.3 fl (9.4-12.4); NEUTROPHILS ABSOLUTE AUTO 9.8 K/mm3 (1.8-7.7); NEUTROPHILS PERCENT AUTO 82.6 % (41.0-71.0); RED BLOOD CELL COUNT 3.98 M/mm3 (4.52-5.90); WHITE BLOOD CELL COUNT,WBC 11.84 K/mm3 (3.9-11.3)
[2024-08-17 11:51] LABS: MEAN CORPUSCULAR VOLUME 87.7 fl (83.0-99.0); PLATELET COUNT,PLT 321 K/mm3 (150-400)
[2024-08-17] MEDS: Ondansetron 4 MG Tab.DIS PO ONE (12:12)
[2024-08-17] MEDS: HYDROmorphone 1 MG/ML Syringe IM ONE (12:12)
[2024-08-17 12:13] LABS: A/G RATIO 0.7 (1-2); ALBUMIN 2.6 g/dl (3.4-5.0); ANION GAP 13.5 (5-15); BILIRUBIN TOTAL 0.4 mg/dL (0.2-1.0); BUN/CREATININE RATIO 11.6 (14-18); CALCIUM 8.8 mg/dL (8.5-10.1); CREATININE 1.9 mg/dL (0.7-1.3); EST CRCL DRUG DOSING (CG) 33.62 mL/min; POTASSIUM,K 4.5 mEq/L (3.5-5.1); PROTEIN TOTAL,TP 6.3 g/dl (6.4-8.2)
[2024-08-17 12:16] LABS: APPEARANCE,URINE CLEAR (Clear); BILIRUBIN,URINE NEGATIVE (Negative); COLOR,URINE YELLOW (Yellow); GLUCOSE,URINE NEGATIVE (Negative); KETONES,URINE NEGATIVE (Negative); LEUKOCYTE ESTERASE,URINE NEGATIVE (Negative); NITRITE,URINE NEGATIVE (Negative); OCCULT BLOOD,URINE NEGATIVE (Negative); PROTEIN,URINE NEGATIVE (Negative); UROBILINOGEN,URINE 0.2 (0.2-1.0)
[2024-08-17 19:47] VITALS: BP 127/56; PULSE 68
== END 2024-08-17 13:38 | disposition home or self-care (01) ==
LOC: JD.ED 09:44
DX: M54.50 Low back pain, unspecified (principal); I25.10 Atherosclerotic heart disease of native coronary artery without angina pectoris; I25.2 Old myocardial infarction; I12.9 Hypertensive chronic kidney disease with stage 1 through stage 4 chronic kidney disease, or unspecified chronic kidney disease; N18.9 Chronic kidney disease, unspecified; E11.22 Type 2 diabetes mellitus with diabetic chronic kidney disease; E66.9 Obesity, unspecified; Z68.41 Body mass index [BMI] 40.0-44.9, adult; Z86.16 Personal history of COVID-19; Z88.1 Allergy status to other antibiotic agents; Z88.8 Allergy status to other drugs, medicaments and biological substances; Z91.030 Bee allergy status; Z91.011 Allergy to milk products; Z79.4 Long term (current) use of insulin; Z79.01 Long term (current) use of anticoagulants; Z79.899 Other long term (current) drug therapy
CPT/HCPCS: 36415; 80053; 81003; 82550; 85025; 96372; 99283; A9270; J1171

== ENCOUNTER 2024-11-13 12:08 | Emergency (ER) | payer MEDICARE, BC ==
[2024-11-13] MEDS: Sodium Chloride 0.9% 500 ML IV SCH (13:34)
[2024-11-13] MEDS: Ondansetron 4 MG/2 ML SDV IVPUSH ONE (13:34)
[2024-11-13 13:46] LABS: APPEARANCE,URINE CLEAR (Clear); BILIRUBIN,URINE NEGATIVE (Negative); COLOR,URINE YELLOW (Yellow); GLUCOSE,URINE NEGATIVE (Negative); KETONES,URINE TRACE (Negative); LEUKOCYTE ESTERASE,URINE 1+ (Negative); NITRITE,URINE NEGATIVE (Negative); OCCULT BLOOD,URINE NEGATIVE (Negative); PROTEIN,URINE TRACE (Negative); UROBILINOGEN,URINE 0.2 (0.2-1.0)
[2024-11-13 13:47] LABS: BASOPHILS ABSOLUTE AUTO 0.1 K/mm3 (0.0-0.2); BASOPHILS PERCENT AUTO 0.6 % (0.0-1.0); EOSINOPHILS PERCENT AUTO 0.4 % (0.0-6.0); HEMATOCRIT 32.9 % (42.0-52.0); HEMOGLOBIN 9.6 gm/dl (14.0-18.0); IMMATURE GRAN ABSOLUTE AUTO 0.03 K/mm3 (0.00-0.05); IMMATURE GRAN PERCENT AUTO 0.3 % (0.0-0.4); LYMPHOCYTES ABSOLUTE AUTO 1.6 K/mm3 (1.0-4.8); LYMPHOCYTES PERCENT AUTO 15.5 % (24.0-44.0); MEAN CORPUSCULAR HEMOGLOBIN 24.6 pg (28.0-32.0); MEAN CORPUSCULAR HGB CONC 29.2 g/dl (32.0-36.0); MONOCYTES ABSOLUTE AUTO 0.8 K/mm3 (0.0-0.8); NEUTROPHILS ABSOLUTE AUTO 7.5 K/mm3 (1.8-7.7); NEUTROPHILS PERCENT AUTO 75.2 % (41.0-71.0); NRBC ABSOLUTE 0.02 (0.00-0.02); NRBC PERCENT 0.2 % (0.0-0.2); PLATELET COUNT,PLT 292 K/mm3 (150-400); WHITE BLOOD CELL COUNT,WBC 9.97 K/mm3 (3.9-11.3)
[2024-11-13 13:48] LABS: MEAN CORPUSCULAR VOLUME 84.4 fl (83.0-99.0)
[2024-11-13 13:52] LABS: BACTERIA,URINE FEW /hpf (FEW); MUCUS,URINE FEW /hpf (FEW); RBC,URINE 0-5 /hpf (0-5); SQUAMOUS EPITHELIAL CELLS,UR 0-5 /hpf (0-5)
[2024-11-13] MEDS: Acetaminophen/HYDROcodone 325-5 MG Tab PO ONE (13:55)
[2024-11-13 14:07] LABS: A/G RATIO 0.8 (1-2); ALBUMIN 3.1 g/dl (3.4-5.0); ANION GAP 14.4 (5-15); BILIRUBIN TOTAL 0.4 mg/dL (0.2-1.0); CREATININE 1.5 mg/dL (0.7-1.3); EST CRCL DRUG DOSING (CG) 42.58 mL/min; MAGNESIUM 2.3 mg/dL (1.8-2.4); POTASSIUM,K 4.4 mEq/L (3.5-5.1); PROTEIN TOTAL,TP 6.8 g/dl (6.4-8.2)
[2024-11-13 15:22] VITALS: BP 126/58; PULSE 87
== END 2024-11-13 15:15 | disposition home or self-care (01) ==
LOC: JD.ED 12:08
DX: D64.9 Anemia, unspecified (principal); I48.91 Unspecified atrial fibrillation; E86.9 Volume depletion, unspecified; M54.50 Low back pain, unspecified; G89.29 Other chronic pain; I12.9 Hypertensive chronic kidney disease with stage 1 through stage 4 chronic kidney disease, or unspecified chronic kidney disease; E11.22 Type 2 diabetes mellitus with diabetic chronic kidney disease; N18.9 Chronic kidney disease, unspecified; I25.10 Atherosclerotic heart disease of native coronary artery without angina pectoris; E66.9 Obesity, unspecified; Z86.16 Personal history of COVID-19; Z90.49 Acquired absence of other specified parts of digestive tract; Z79.899 Other long term (current) drug therapy; Z79.4 Long term (current) use of insulin; Z91.011 Allergy to milk products; Z88.8 Allergy status to other drugs, medicaments and biological substances; Z88.1 Allergy status to other antibiotic agents; Z91.030 Bee allergy status
CPT/HCPCS: 36415; 80053; 81001; 83690; 83735; 84484; 85025; 93005; 96361; 96374; 99284; A9270; J2405; J7030; 93010